=== PATIENT | female | born 1975 | race Caucasian/White ===

== ENCOUNTER 2017-02-27 09:33 | Emergency (ER) | payer OTHER ==
[~2017-02-27] VITALS: Ht 149.8 cm; Wt 90.7 kg
[~2017-02-27 09:33] MED LIST: NKHM; ZITHROMAX Z PA250 MG PO
[2017-02-27 10:07] LABS: BASO % 0.3 % (0.0-1.0); EOS # 0.1 10*3/uL (0.0-0.4); EOS % 0.6 % (1.0-4.0); HEMATOCRIT 43.6 % (37.0-47.0); HEMOGLOBIN 14.5 g/dl (12.0-16.0); LYMPH # 1.8 10*3/uL (1.3-4.4); LYMPH % 13.8 % (27.0-41.0); MEAN CELL VOLUME 89.3 fl (81.0-99.0); MEAN CORPUSCULAR HGB 29.7 pg (27.0-31.0); MEAN CORPUSCULAR HGB CONC 33.3 g/dl (33.0-37.0); MEAN PLATELET VOLUME 10.6 fl (9.6-12.3); MONO # 0.5 10*3/uL (0.1-1.0); NEUT # 10.4 10*3/uL (2.3-7.9); NEUT % 79.7 % (47.0-73.0); PLATELET COUNT AUTOMATED 392 10*3/uL (130-400); RED BLOOD COUNT 4.88 10*6/uL (4.10-5.10); RED CELL DISTRI WIDTH 13.5 % (0-14.5); WHITE BLOOD COUNT 13.1 10*3/uL (4.8-10.8)
[2017-02-27 10:23] LABS: ALBUMIN 3.5 gm/dl (3.1-4.5); ALKALINE PHOSPHATASE 147 U/L (45-117); BUN 18 mg/dl (7-24); CHLORIDE 104 mmol/L (98-107); CREATININE 1.07 mg/dL (0.55-1.02); POTASSIUM 3.7 mmol/L (3.5-5.1); SGOT/AST 26 IU/L (3-35); SGPT/ALT 40 U/L (12-78); SODIUM 139 mmol/L (136-145); TOTAL PROTEIN 8.2 gm/dL (6.4-8.2)
[2017-02-27 10:25] LABS: TROPONIN I < 0.015 ng/ml (<0.045)
[2017-02-27 11:46] LABS: BILIRUBIN NEGATIVE (NEGATIVE); BLOOD TRACE-INTACT (NEGATIVE); CLARITY SL CLOUDY (CLEAR); COLOR YELLOW (YELLOW); GLUCOSE NEGATIVE (NEGATIVE); KETONE NEGATIVE (NEGATIVE); LEUKO ESTERASE NEGATIVE (NEGATIVE); NITRITE NEGATIVE (NEGATIVE); PH 5.5 (5.0-9.0); SPECIFIC GRAVITY >= 1.030 (1.005-1.030); UROBILINOGEN 0.2 E.U./dl (0.2-1.0)
[2017-02-27 11:51] LABS: URINE AMPHETAMINES < 1000 (1000ng/ml); URINE BARBITURATES < 200 (200ng/ml); URINE BENZODIAZEPINES < 200 (200ng/ml); URINE CANNABINOIDS (THC) < 50 (50ng/ml); URINE COCAINE < 300 (300ng/ml); URINE METHADONE < 300 (300ng/ml); URINE OPIATES < 300 (300ng/ml)
[2017-02-27 11:56] LABS: URINE PHENCYCLIDINE < 25 (25ng/ml)
[2017-02-27 12:04] LABS: BACTERIA TRACE; WBC 0-2 wbc/hpf (0-5)
== END 2017-02-27 15:17 | disposition short-term general hospital (02) ==
LOC: ED 09:33
PROVIDERS: Nurse Practitioner Family
DX: R56.9 Unspecified convulsions (principal)

== ENCOUNTER → 2017-05-26 | Outpatient (CLI) | payer OTHER | END | disposition home or self-care (01) | LOC: RAD 14:59 | DX: M48.56XA Collapsed vertebra, not elsewhere classified, lumbar region, initial encounter for fracture (principal) ==

== ENCOUNTER → 2018-03-09 | Outpatient (CLI) | payer OTHER | END | disposition home or self-care (01) | LOC: RAD 11:48 | DX: M54.5 Low back pain (principal); M54.6 Pain in thoracic spine ==

== ENCOUNTER → 2018-05-05 | Outpatient (CLI) | payer OTHER | END | disposition home or self-care (01) | LOC: LAB 14:06 | DX: R56.9 Unspecified convulsions (principal) ==

== ENCOUNTER → 2018-09-24 | Outpatient (CLI) | payer OTHER ==
[~2018-09-24] MED LIST changes: +AMOXICILLIN500 M2 PO; +DOXYCYCLINE100 M3 PO; +IBUPROFEN600 MG PO; +KEPPRA500 MG PO; +NORCO 5-325 TA1 EACH PO; +PRILOSEC20 M1 PO; +SINGULAIR10 M1 PO; +TRAMADOL HCL50 MG PO; +VITAMIN D5000 UNI1 PO; +XYZAL5 M1 PO; +ZOLOFT100 MG PO
[2018-09-24 15:02] LABS: BASO % 0.5 % (0.0-1.0); BILIRUBIN NEGATIVE (NEGATIVE); BLOOD NEGATIVE (NEGATIVE); CLARITY CLEAR (CLEAR); COLOR STRAW (YELLOW); EOS # 0.1 10*3/uL (0.0-0.4); EOS % 2.1 % (1.0-4.0); GLUCOSE NEGATIVE (NEGATIVE); HEMATOCRIT 41.7 % (37.0-47.0); KETONE NEGATIVE (NEGATIVE); LEUKO ESTERASE 1+ (NEGATIVE); LYMPH # 1.2 10*3/uL (1.3-4.4); LYMPH % 19.8 % (27.0-41.0); MEAN CELL VOLUME 95.6 fl (81.0-99.0); MEAN CORPUSCULAR HGB 32.1 pg (27.0-31.0); MEAN CORPUSCULAR HGB CONC 33.6 g/dl (33.0-37.0); MEAN PLATELET VOLUME 11.6 fl (9.6-12.3); MONO # 0.4 10*3/uL (0.1-1.0); MONO % 7.2 % (3.0-9.0); NEUT # 4.3 10*3/uL (2.3-7.9); NEUT % 70.1 % (47.0-73.0); NITRITE NEGATIVE (NEGATIVE); PH 5.5 (5.0-9.0); PLATELET COUNT AUTOMATED 279 10*3/uL (130-400); RED BLOOD COUNT 4.36 10*6/uL (4.10-5.10); RED CELL DISTRI WIDTH 12.9 % (0-14.5); SPECIFIC GRAVITY >= 1.030 (1.005-1.030); UROBILINOGEN 0.2 E.U./dl (0.2-1.0); WHITE BLOOD COUNT 6.1 10*3/uL (4.8-10.8)
[2018-09-24 15:08] LABS: BACTERIA 4+; WBC 16-20 wbc/hpf (0-5)
[2018-09-24 15:09] LABS: RBC 0-2 rbc/hpf (0-2)
[2018-09-24 15:28] LABS: BUN 14 mg/dl (7-24); CHLORIDE 107 mmol/L (98-107); CREATININE 0.73 mg/dL (0.55-1.02); POTASSIUM 4.3 mmol/L (3.5-5.1); SODIUM 141 mmol/L (136-145)
[2018-09-24 15:31] LABS: ACT PARTIAL THROMBO TIME 25.9 SECONDS (20.0-32.1)
== END | disposition home or self-care (01) ==
LOC: LAB 13:18
PROVIDERS: Surgery
DX: Z01.818 Encounter for other preprocedural examination (principal); K80.80 Other cholelithiasis without obstruction

== ENCOUNTER → 2018-09-30 | Day surgery (SDC) | payer OTHER ==
[~2018-09-30] VITALS: Ht 149.8 cm; Wt 76.7 kg
--- NOTE | ~2018-09-30 | O ---
[place], [place] OPERATIVE NOTE NAME: TALAT CADENA [facility] #: [id number] UNIT #: [id number] ROOM: DOCTOR: ARCHIE RING MD BIRTHDATE: [birth year] DOS: 09/30/2018 PREOPERATIVE DIAGNOSES: Chronic calculous cholecystitis and history of gallstone associated pancreatitis, status post ERCP with stent placement. POSTOPERATIVE DIAGNOSES: Chronic calculous cholecystitis and history of gallstone associated pancreatitis, status post ERCP with stent placement. PROCEDURE: Laparoscopic cholecystectomy. SURGEON: Archie Ring MD SHIFT BOSS: MINNA. ANESTHESIA: General with endotracheal intubation. INDICATIONS: This is a 42-year-old lady with a history of previous chronic calculous cholecystitis, status post stent placement for gallstone associated pancreatitis and common bile duct stones who is here for the above-mentioned procedure. The procedure and its complications were explained to the patient in detail preoperatively. Complications that were discussed included but were not limited to bleeding, infection, hematoma/seroma/abscess formation, biloma formation, prolonged postoperative pain, damage to underlying vital structures, inadvertent injury to common bile duct and incisional hernia formation. She agreed to proceed. DESCRIPTION OF PROCEDURE: After identifying the patient, the patient was brought to the operating suite and laid in the supine position. After induction of general anesthesia, timeout procedure was called. The parts were then painted and draped in the usual sterile fashion. An incision in a transverse fashion was made in the subumbilical region. The skin and the subcutaneous tissue were incised in the line of the incision. The fascia was incised vertically and 2 stay sutures were taken. The peritoneum was opened and a 12 mm Licha port was introduced into the peritoneal cavity. A pneumoperitoneum was created. Under direct vision, an epigastric incision of 12 mm and two 5 mm incision were made in the right upper quadrant and appropriate size ports were introduced. The gallbladder had some chronic adhesions between the liver bed and the gallbladder, which were taken down with the help of sharp dissection. The gallbladder was then retracted superiorly and laterally. The cystic duct and the cystic artery were carefully dissected until the critical view of safety was obtained and the triangle of Calot was clearly identified. Thereafter, the cystic duct and the cystic artery were each clipped 3 times and cut between the first and the second clip. The gallbladder was then removed from the bed of the gallbladder with the help of electrocautery. It was placed in an EndoCatch bag and removed from the peritoneal cavity and sent for histopathological diagnosis. Hemostasis was achieved and confirmed in the liver bed with the help of electrocautery. Thereafter, the right upper quadrant and epigastric ports were removed and there was no bleeding seen. The umbilical port was also removed. The 2 stay sutures were tied together and an additional 0 Vicryl suture was taken to close the fascia. Local anesthesia was infiltrated in the skin edges [place], [place] O[facility]AT[id number] UN[facility] #: [id number] ROOM: DOCTOR: ARCHIE RING MD BIRTHDATE: [birth year] of all the 4 incisions and the incisions were then approximated with the help of 4-0 Vicryl in a subcuticular running fashion. Dressings were placed on all the 4 incisions. The patient tolerated the procedure well. She was extubated uneventfully and brought back to the recovery room in stable fashion. There were no complications. Dr. Archie Ring, the attending surgeon, was present throughout the operating case. Archie Ring MD CM:OPRECORD:OPERATIVE NOTE [id number] ARCHIE RING MD 09/30/18 1016 interface
[2018-09-30 07:30] VITALS: BP 125/69
[2018-09-30 09:58] VITALS: BP 115/54
[2018-09-30 10:13] VITALS: BP 115/55
[2018-09-30 10:28] VITALS: BP 109/51
[2018-09-30 10:43] VITALS: BP 119/58
[2018-09-30 10:58] VITALS: BP 119/61
== END | disposition home or self-care (01) ==
LOC: SDC 09-24 13:15
DX: K80.10 Calculus of gallbladder with chronic cholecystitis without obstruction (principal); J45.909 Unspecified asthma, uncomplicated; F41.9 Anxiety disorder, unspecified; F32.9 Major depressive disorder, single episode, unspecified; K21.9 Gastro-esophageal reflux disease without esophagitis; M41.9 Scoliosis, unspecified; Z88.1 Allergy status to other antibiotic agents; Z88.8 Allergy status to other drugs, medicaments and biological substances; Z79.899 Other long term (current) drug therapy; Z98.890 Other specified postprocedural states; Z87.01 Personal history of pneumonia (recurrent); Z83.3 Family history of diabetes mellitus

== ENCOUNTER 2018-11-06 13:21 | Emergency (ER) | payer OTHER ==
[~2018-11-06] VITALS: Ht 149.8 cm; Wt 74.8 kg
[~2018-11-06 13:21] MED LIST changes: -AMOXICILLIN500 M2 PO; -IBUPROFEN600 MG PO; -VITAMIN D5000 UNI1 PO
[2018-11-06] MEDS ORDERED: IBUPROFEN600 MG PO (13:33)
[2018-11-06] MEDS ORDERED: AMOXICILLIN500 M2 PO (13:33)
== END 2018-11-06 13:55 | disposition home or self-care (01) ==
LOC: ED 13:21
DX: K08.89 Other specified disorders of teeth and supporting structures (principal); Z88.1 Allergy status to other antibiotic agents; Z79.899 Other long term (current) drug therapy

== ENCOUNTER 2018-11-17 22:36 | Inpatient (IN) | payer OTHER ==
[~2018-11-17] VITALS: Ht 149.9 cm; Wt 73.6 kg
--- NOTE | ~2018-11-17 | PR ---
[place], [place] PROGRESS NOTE NAME: TALAT CADENA UNIT #: [id number] ROOM: 427 DOCTOR: GREG POLK MD BIRTHDATE: [birth year] DOS: 11/20/2018 REASON FOR VISIT: Sinus bradycardia. HISTORY OF PRESENT ILLNESS: The patient is sitting on her bed comfortably. Denies any dizziness or palpitations. No chest pain or shortness of breath. No PND. Her nausea and epigastric pain is somewhat better. No fever and chills, no cough, no hemoptysis. The 8 systems negative except as mentioned above. PHYSICAL EXAMINATION: VITAL SIGNS: Blood pressure 121/55, pulse 44, respiratory rate 16, weight 73 kilos. RHYTHM STRIPS: The patient is in sinus rhythm with sinus bradycardia, no heart blocks. GENERAL: Alert, comfortable, in no acute distress. NECK: Supple, no distended neck veins. No carotid bruits. CHEST: Symmetrical, nontender. LUNGS: Clear to auscultation bilaterally. HEART: Regular rhythm, no S3, no palpable thrills. ABDOMEN: Obese, nontender. Bowel sounds normal. EXTREMITIES: Showed trace edema. Distal pulses palpable. SKIN: Warm and dry. No cyanosis, no clubbing. RECTAL: Deferred. GENITOURINARY: Deferred. NEUROLOGIC: The patient is alert with no focal neurologic deficit. LABORATORY DATA: Labs and medications reviewed. Hemoglobin 10.8, potassium 3.6. TSH normal, T4 normal. 2D echo unremarkable. IMPRESSION: 1. Sinus bradycardia, asymptomatic, normal TSH and T4 levels. The patient has a known bradycardia in the past, likely secondary to her abdominal symptoms and nausea. 2. Elevated bilirubin with epigastric pain with status post ERCP. 3. Mild anemia. RECOMMENDATIONS: No further cardiac testing. Echo findings are discussed and thyroid function tests are normal and the patient is asymptomatic. Cardiology followup as needed. If the patient develops symptomatic bradycardia, then she will need a permanent pacemaker. The above recommended treatment was discussed with the patient and her family member who is at bedside and all questions were answered. [place], [place] PROGRESS NOTE NAME: TALAT CADENA UNIT #: [id number] ROOM: 427 DOCTOR: GREG POLK MD BIRTHDATE: [birth year] GREG POLK MD CM:PNSHILPA [id number] GREG POLK MD 11/20/18 2148 interface
--- NOTE | ~2018-11-17 | O ---
[place], [place] OPERATIVE NOTE NAME: TALAT CADENA UNIT #: [id number] ROOM: 427 DOCTOR: REINALDO BARBOUR MD BIRTHDATE: [birth year] DOS: 11/19/2018 GASTROENDOSCOPIC REPORT INDICATIONS: The patient has presented with abnormal liver function test. The patient has been previously at ERCP and stent. Once the stent was removed after maturation, the patient developed abnormal LFTs, signifying obstruction. PROCEDURE: Today's procedure part of investigation is ERCP plus balloon sweep of common duct plus common duct stenting of size 10 x 7. PREMEDICATION: Propofol by intubation and Anesthesia. SCOPE: Olympus side-viewing duodenoscope. REPORT: After putting the patient in left lateral position, application of lubricant to the scope, the scope was introduced. Thereafter, under direct visualization, advanced through the length of esophagus into gastric pouch into duodenal bulb. Selective cannulization of common duct was undertaken. The cystic duct has very low position and therefore why majority of time is spent in cystic duct; however, appropriate measures were taken and wire was placed in the right hepatic radicle. A balloon sweep at size 12 was undertaken. A stent size 10 x 12 was over the guidewire was deployed. Photographic series before and after was obtained. Emptied duct immediately was identified. The patient extubated, tolerated the procedure well. 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 PLAN AND DISCUSSION: LFTs tomorrow next morning. Thank you very much indeed. If there is no improvement in liver function tests, we are going to do a hepatitis panel as well as considering other contribution from chemicals I.e. acetaminophen intake of 2 Extra Strength acetaminophen daily in addition to her anti-seizure medication. [place], [place] OPERATIVE NOTE NAME: TALAT CADENA UNIT #: [id number] ROOM: 427 DOCTOR: REINALDO BARBOUR MD BIRTHDATE: [birth year] REINALDO BARBOUR MD CM:OPRECORD:OPERATIVE NOTE [id number] REINALDO BARBOUR MD 11/25/18 1044 interface
--- NOTE | ~2018-11-17 | EKG ---
[place], [place] ELECTROCARDIOGRAM REPORT NAME: TALAT CADENA UNIT #: [id number] ROOM: 403 DOCTOR: HAYDEE DRAFT REPORT BIRTHDATE: [birth year] [facility] Test Date: 2018-11-19 Test Time: 11:41:48 Pat Name: TALAT CADENA Department: Room: 403 2 Gender: F Costing Analyst: Mariluz Li : 1975 Requested By: MARIANO DELAROSA Order Number: [id number] Reading MD: Mariano Delarosa MD Measurements Intervals [place] Rate: 42 P: -2 CO: 131 QRS: 48 QRSD: 95 T: -1 QT: 519 QTc: 434 Interpretive Statements Sinus bradycardia Low voltage, precordial leads No previous ECG available for comparison Electronically Signed On 11-19-2018 13:03:45 PDT by Mariano Delarosa MD CM:EKGRPT:ELECTROCARDIOGRAM REPORT 1141 [id number] MARIANO DELAROSA MD EPIPHANY DRAFT REPORT MARIANO DELAROSA MD
[~2018-11-17 22:36] MED LIST changes: -VITAMIN D5000 UNI1 PO
[2018-11-17 22:41] VITALS: BP 117/57
[2018-11-18 00:29] LABS: BASO % 0.2 % (0.0-1.0); EOS % 0.2 % (1.0-4.0); HEMATOCRIT 40.3 % (37.0-47.0); HEMOGLOBIN 13.3 g/dl (12.0-16.0); LYMPH # 0.7 10*3/uL (1.3-4.4); LYMPH % 7.5 % (27.0-41.0); MEAN CELL VOLUME 96.2 fl (81.0-99.0); MEAN CORPUSCULAR HGB 31.7 pg (27.0-31.0); MEAN PLATELET VOLUME 11.5 fl (9.6-12.3); MONO # 0.6 10*3/uL (0.1-1.0); MONO % 6.1 % (3.0-9.0); NEUT # 7.7 10*3/uL (2.3-7.9); NEUT % 85.3 % (47.0-73.0); PLATELET COUNT AUTOMATED 234 10*3/uL (130-400); RED BLOOD COUNT 4.19 10*6/uL (4.10-5.10); RED CELL DISTRI WIDTH 13.2 % (0-14.5)
[2018-11-18 00:41] LABS: ALBUMIN 3.6 gm/dl (3.1-4.5); ALKALINE PHOSPHATASE 652 U/L (45-117); BUN 12 mg/dl (7-24); CHLORIDE 108 mmol/L (98-107); CREATININE 0.82 mg/dL (0.55-1.02); LIPASE 96 U/L (73-393); POTASSIUM 4.1 mmol/L (3.5-5.1); SGOT/AST 792 IU/L (3-35); SGPT/ALT 554 U/L (12-78); SODIUM 138 mmol/L (136-145); TOTAL PROTEIN 7.7 gm/dL (6.4-8.2)
[2018-11-18 01:50] LABS: BILIRUBIN 1+ (NEGATIVE); BLOOD NEGATIVE (NEGATIVE); CLARITY CLEAR (CLEAR); COLOR YELLOW (YELLOW); GLUCOSE NEGATIVE (NEGATIVE); KETONE NEGATIVE (NEGATIVE); LEUKO ESTERASE TRACE (NEGATIVE); NITRITE NEGATIVE (NEGATIVE); SPECIFIC GRAVITY 1.015 (1.005-1.030)
[2018-11-18 02:03] LABS: RBC 0-2 rbc/hpf (0-2)
[2018-11-18 02:04] LABS: BACTERIA 1+; EPITHELIAL CELLS 0-2
[2018-11-18 02:40] VITALS: BP 112/62
[2018-11-18 02:53] VITALS: BP 107/58
--- NOTE | 2018-11-18 02:53 | NUR ---
A 42, admitted to , under the services of MARLA Cool DO with a diagnosis of ELEVATED BILIRUBIN,EPIGASTRIC PAIN,NAUSEA AND VOMITING. Chief complaint is ABDOMINAL PAIN. Patient arrived via stretcher from ER. Monitor applied. Initial assessment completed. Vital signs taken and recorded. MARLA COOL DO notified of admission to the unit. Orders received. See assessment for past medical history, medications and allergies. Patient and/or family oriented to unit. [facility]. Clothing/patient valuable form completed. FRAN ALEXANDRE
[2018-11-18 03:22] LABS: BASO % 0.2 % (0.0-1.0); EOS % 0.1 % (1.0-4.0); HEMATOCRIT 37.7 % (37.0-47.0); HEMOGLOBIN 12.6 g/dl (12.0-16.0); LYMPH # 0.7 10*3/uL (1.3-4.4); LYMPH % 7.9 % (27.0-41.0); MEAN CELL VOLUME 95.2 fl (81.0-99.0); MEAN CORPUSCULAR HGB 31.8 pg (27.0-31.0); MEAN CORPUSCULAR HGB CONC 33.4 g/dl (33.0-37.0); MONO # 0.4 10*3/uL (0.1-1.0); MONO % 4.6 % (3.0-9.0); NEUT # 7.3 10*3/uL (2.3-7.9); PLATELET COUNT AUTOMATED 238 10*3/uL (130-400); RED BLOOD COUNT 3.96 10*6/uL (4.10-5.10); RED CELL DISTRI WIDTH 13.4 % (0-14.5); WHITE BLOOD COUNT 8.3 10*3/uL (4.8-10.8)
--- NOTE | 2018-11-18 03:33 | NUR ---
DR DUNN AWARE THAT PATIENT HOME MEDICATIONS ARE UP TO DATE.
[2018-11-18 03:34] LABS: ACT PARTIAL THROMBO TIME 24.7 SECONDS (20.0-32.1)
[2018-11-18 03:52] LABS: ALBUMIN 3.3 gm/dl (3.1-4.5); ALKALINE PHOSPHATASE 623 U/L (45-117); BUN 10 mg/dl (7-24); CHLORIDE 110 mmol/L (98-107); CHOLESTEROL 164 mg/dL (<200); CREATININE 0.71 mg/dL (0.55-1.02); HDL CHOLESTEROL 52 mg/dl (40-60); LDL CHOLESTEROL 97 mg/dL (9-159); PHOSPHOROUS 2.9 mg/dL (2.5-4.9); SGOT/AST 900 IU/L (3-35); SGPT/ALT 678 U/L (12-78); SODIUM 140 mmol/L (136-145); TOTAL PROTEIN 7.3 gm/dL (6.4-8.2); TRIGLYCERIDES 75 mg/dl (<150); VLDL CHOLESTEROL 15 mg/dL (6-40)
--- NOTE | 2018-11-18 07:35 | NUR ---
CALLED DR BARBOUR WITH LFT LABS ORDERED. NEW ORDERS RECEIVED.
[2018-11-18 08:00] VITALS: BP 104/60
--- NOTE | 2018-11-18 09:00 | NUR ---
[employer] Battalion Chief in to talk to patient. Patient states lives at home with . There are few steps in the home. Physician: matty Pharmacy: [facility] Home health services: none Patient's level of ADLs: INDEPENDENT Patient has working utilities: all working DME: none Follow-up physician's appointment after d/c: will be made by hospitalist nurse director upon discharge Does patient want to access PORTAL?: no Discharge plan discussed with patient, patient lives at home with , she is independent in adls and ambulation, she states she will return home whena able and denies any home needs. KELLIE MCFADDEN
[2018-11-18 12:00] VITALS: BP 107/67
[2018-11-18 16:00] VITALS: BP 99/57
[2018-11-18 20:00] VITALS: BP 143/96
[2018-11-19] VITALS (10 sets, daily range): BP systolic 102–122; BP diastolic 50–76
[2018-11-19 06:51] LABS: ALBUMIN 2.8 gm/dl (3.1-4.5); ALKALINE PHOSPHATASE 611 U/L (45-117); BUN 5 mg/dl (7-24); CHLORIDE 115 mmol/L (98-107); CREATININE 0.55 mg/dL (0.55-1.02); SGOT/AST 526 IU/L (3-35); SGPT/ALT 770 U/L (12-78); SODIUM 143 mmol/L (136-145); TOTAL PROTEIN 6.1 gm/dL (6.4-8.2)
--- NOTE | 2018-11-19 07:05 | NUR ---
ARRIVED ON SHIFT, PATIENT RESTING WITH EYES CLOSED, DID NOT AWAKEN FOR BEDSIDE REPORT, WHITE BOARD UPDATED.
--- NOTE | 2018-11-19 08:55 | NUR ---
Shift chart check completed.
--- NOTE | 2018-11-19 09:00 | NUR ---
case management visits with patient, she states she will be returning home when able and denies any home needs
--- NOTE | 2018-11-19 11:09 | NUR ---
CALL PLACED TO HOSPITALISTS LINE SPOKE WITH DR. ASHFORD, ADVISED OF PATIENTS HEART RATE CONSISTANTLY IN 30'S-40'S
--- NOTE | 2018-11-19 11:19 | NUR ---
REFERAL RECEIVED FOR CARDIO CONSULT, DR. ANDRADE WAS WALKING BY I ADVISED HIM OF CONSULTATION, WELL CALLING TO HIS OFFICE, HER ORDERED A 1 TIME DOSE OF ATROPINE 0.5MG
--- NOTE | 2018-11-19 14:11 | NUR ---
SPOKE WITH DR ANDRADE, STATES PT OK FOR ERCP, GIVE 0.5 MG OF ATROPINE NEEDED FOR HR<40.
--- NOTE | 2018-11-19 20:47 | NUR ---
ZAOFRAN GIVEN FOR C/O NAUSEA FOLLOWING "ANESTHESIA". CALL LIGHT IN REACH. AT BEDSIDE. WILL MONITOR.
--- NOTE | 2018-11-19 20:48 | NUR ---
ANXIOUS AT TIME OF SHIFT REPORT. PAIN TO ABD NOTED FOLLOWING ERCP TODAY AND RECENT STENT REMOVAL. AT BEDSIDE. PT IN TEARS AND STATING ITS "DUE TO ANXIETY." REQUESTING SPOUSE TO STAY. EXPLAINED POLICIES OF HOSPITAL REGARDING VISITORS. PTs ANXIETY INCREASING. CALL LIGHT IN REACH. AT BEDSIDE CALMING PT DOWN.
--- NOTE | 2018-11-19 21:36 | NUR ---
PER PT, ZOFRAN WAS EFFECTIVE. NAUSEA IS BETTER. IVF GOING WITH EASE. CALL LIGHT IN REACH. AT BEDSIDE. NO FURTHER COMPLAINTS VOICED.
[2018-11-20] VITALS: BP 92/40
--- NOTE | 2018-11-20 07:45 | NUR ---
NOTIFIED REGARDING POSITIVE URINE CULTURE.
[2018-11-20 08:00] VITALS: BP 102/51
[2018-11-20 08:52] LABS: BASO % 0.4 % (0.0-1.0); EOS % 0.4 % (1.0-4.0); HEMATOCRIT 34.2 % (37.0-47.0); HEMOGLOBIN 10.8 g/dl (12.0-16.0); LYMPH # 1.3 10*3/uL (1.3-4.4); LYMPH % 17.3 % (27.0-41.0); MEAN CELL VOLUME 98.6 fl (81.0-99.0); MEAN CORPUSCULAR HGB 31.1 pg (27.0-31.0); MEAN CORPUSCULAR HGB CONC 31.6 g/dl (33.0-37.0); MEAN PLATELET VOLUME 11.2 fl (9.6-12.3); MONO # 0.5 10*3/uL (0.1-1.0); MONO % 6.7 % (3.0-9.0); NEUT # 5.7 10*3/uL (2.3-7.9); NEUT % 74.9 % (47.0-73.0); PLATELET COUNT AUTOMATED 221 10*3/uL (130-400); RED BLOOD COUNT 3.47 10*6/uL (4.10-5.10); RED CELL DISTRI WIDTH 13.8 % (0-14.5); WHITE BLOOD COUNT 7.6 10*3/uL (4.8-10.8)
[2018-11-20 09:11] LABS: ALBUMIN 2.6 gm/dl (3.1-4.5); BUN 6 mg/dl (7-24); CHLORIDE 114 mmol/L (98-107); CREATININE 0.57 mg/dL (0.55-1.02); POTASSIUM 3.6 mmol/L (3.5-5.1); SGOT/AST 171 IU/L (3-35); SGPT/ALT 466 U/L (12-78); SODIUM 142 mmol/L (136-145)
[2018-11-20 09:13] LABS: ALKALINE PHOSPHATASE 540 U/L (45-117)
--- NOTE | 2018-11-20 10:14 | NUR ---
PATIENT REFUSING PRN ATROPINE AT THIS TIME. HR FLUCTUATING BETWEEN 38-39. PT ASYMPTOMATIC. WILL CONTINUE TO MONITOR.
--- NOTE | 2018-11-20 11:08 | NUR ---
NOTIFIED REGARDING PATIENT C/O THROAT PAIN. NEW ORDERS TO BE ENTERED.
[2018-11-20 11:21] VITALS: BP 121/55
[2018-11-20 15:17] VITALS: BP 111/52
--- NOTE | 2018-11-20 17:36 | NUR ---
PRN THROAT SPRAY GIVEN AT THIS TIME PER PT REQUEST. WILL MONITOR EFFECTIVENESS.
--- NOTE | 2018-11-20 20:00 | NUR ---
TOOK OVER CARE OF PT AT THIS TIME. PT LYING IN BED, EYES OPEN. ALERT ORIENTED AND PLEASANT WITH STAFF. PT ASSESSMENT COMPLETE AT THIS TIME. PT DENIES N/V, DENIES CP OR SOB. PT STATES THAT SHE DOES NOT NEED ANYTHING AT THIS TIME. IV FLUIDS INFUSING. HOB ELEVATED, PT VISITNG WITH FAMILY. CALL LIGHT IN REACH.
[2018-11-21] VITALS: BP 124/59
--- NOTE | 2018-11-21 04:23 | NUR ---
PT SLEEPING IN BED AT THIS TIME. RESPIRATIONS EASY AND UNLABORED ON ROOM AIR. NO S/S OF DISTRESS NOTED. CALL LIGHT IN REACH.
--- NOTE | 2018-11-21 04:24 | NUR ---
24 HR chart check completed.
[2018-11-21 06:19] LABS: BASO % 0.4 % (0.0-1.0); EOS # 0.1 10*3/uL (0.0-0.4); EOS % 1.7 % (1.0-4.0); HEMATOCRIT 34.4 % (37.0-47.0); HEMOGLOBIN 11.4 g/dl (12.0-16.0); LYMPH # 1.9 10*3/uL (1.3-4.4); LYMPH % 35.1 % (27.0-41.0); MEAN CORPUSCULAR HGB 31.3 pg (27.0-31.0); MEAN CORPUSCULAR HGB CONC 33.1 g/dl (33.0-37.0); MEAN PLATELET VOLUME 11.7 fl (9.6-12.3); MONO # 0.5 10*3/uL (0.1-1.0); MONO % 8.4 % (3.0-9.0); NEUT # 2.9 10*3/uL (2.3-7.9); NEUT % 54.2 % (47.0-73.0); PLATELET COUNT AUTOMATED 225 10*3/uL (130-400); RED BLOOD COUNT 3.64 10*6/uL (4.10-5.10); RED CELL DISTRI WIDTH 13.4 % (0-14.5); WHITE BLOOD COUNT 5.4 10*3/uL (4.8-10.8)
[2018-11-21 06:29] LABS: ALBUMIN 2.7 gm/dl (3.1-4.5); ALKALINE PHOSPHATASE 545 U/L (45-117); BUN 3 mg/dl (7-24); CHLORIDE 106 mmol/L (98-107); CREATININE 0.61 mg/dL (0.55-1.02); POTASSIUM 3.2 mmol/L (3.5-5.1); SGOT/AST 83 IU/L (3-35); SGPT/ALT 320 U/L (12-78); SODIUM 141 mmol/L (136-145); TOTAL PROTEIN 6.4 gm/dL (6.4-8.2)
[2018-11-21 06:59] LABS: MEAN CELL VOLUME 94.5 fl (81.0-99.0)
[2018-11-21 08:00] VITALS: BP 125/63
--- NOTE | 2018-11-21 08:00 | NUR ---
PATIENT RESTING QUIETLY IN BED. PT DENIES ANY ABD PAIN AND/OR NAUSEA. WILL CONTINUE TO MONITOR. CALL LIGHT WITHIN REACH. VSS
--- NOTE | 2018-11-21 10:00 | NUR ---
UPDATED ON AM LABS. NEW ORDERS RECEIVED.
[2018-11-21 12:00] VITALS: BP 110/47
[2018-11-21] MEDS ORDERED: VITAMIN D5000 UNI1 PO (12:53)
--- NOTE | 2018-11-21 13:24 | NUR ---
Discharge instructions reviewed with patient/family. Patient receptive and verbalizes understanding. Follow-up care arranged. Written instructions given to patient/family. MAHI RIVAS.
== END 2018-11-21 13:24 | disposition home or self-care (01) | DRG 948 ==
LOC: ED 22:36 → 4E 11-18 01:11 → EDHOLD 11-18 01:11 → 4E 11-18 02:02
PROVIDERS: Internal Medicine; Internal Medicine Gastroenterology; Physician Assistant; Student in an Organized Health Care Education/Training Program; ADMIT Internal Medicine
DX: G89.18 Other acute postprocedural pain (principal); R17 Unspecified jaundice; E87.2 Acidosis; M86.9 Osteomyelitis, unspecified; R10.13 Epigastric pain; E87.8 Other disorders of electrolyte and fluid balance, not elsewhere classified; R74.0 Nonspecific elevation of levels of transaminase and lactic acid dehydrogenase [LDH]; E55.9 Vitamin D deficiency, unspecified; G40.909 Epilepsy, unspecified, not intractable, without status epilepticus; E66.9 Obesity, unspecified; K57.90 Diverticulosis of intestine, part unspecified, without perforation or abscess without bleeding; D72.810 Lymphocytopenia; R73.9 Hyperglycemia, unspecified; R00.1 Bradycardia, unspecified; D64.9 Anemia, unspecified; Z68.39 Body mass index [BMI] 39.0-39.9, adult; Z88.8 Allergy status to other drugs, medicaments and biological substances; Z79.899 Other long term (current) drug therapy; Z90.49 Acquired absence of other specified parts of digestive tract; Z83.3 Family history of diabetes mellitus; Z80.59 Family history of malignant neoplasm of other urinary tract organ; Z98.890 Other specified postprocedural states; Z68.32 Body mass index [BMI] 32.0-32.9, adult

== ENCOUNTER → 2018-11-17 | Day surgery (SDC) | payer OTHER ==
[~2018-11-17] VITALS: Ht 149.8 cm; Wt 76.7 kg
[~2018-11-17] MED LIST changes: +AMOXICILLIN500 M2 PO; +IBUPROFEN600 MG PO; +VITAMIN D5000 UNI1 PO
--- NOTE | ~2018-11-17 | O ---
[place], [place] OPERATIVE NOTE NAME: TALAT CADENA UNIT #: [id number] ROOM: DOCTOR: REINALDO BARBOUR MD BIRTHDATE: [birth year] DOS: 11/17/2018 GASTROENDOSCOPIC REPORT INDICATIONS: The patient has presented with old history of status post ERCP, right upper quadrant pain, dyspepsia. The patient is status post previous biliary therapeutics, stent in place. ALLERGIES: Z-HARVEY. PAST SURGICAL HISTORY: Cholecystectomy and common duct stent. PROCEDURE: Today's procedure part of investigation is ERCP plus removal obstructed migrated common duct stent and dilation of papilla with balloon and sweeping of common duct with balloon. PREMEDICATION: Propofol. SCOPE: Olympus side-viewing duodenoscope. REPORT: After putting the patient in left lateral position and application of lubricant to the scope, the scope was introduced. Thereafter, under direct visualization, advanced through the length of esophagus into gastric pouch. Bile reflux gastritis noticed. Duodenum was entered migrated common duct stent and agitation of duodenum with severe duodenitis was noticed, photographed, snare was applied, stent of the common duct was pulled orally out. The patient was reintubated and Papilla of Vater was defined. Selective cannulization of common duct was undertaken. Guidewire was advanced to right hepatic radicles. Balloon size 12 was introduced into the common duct. Papilla of Vater was dilated first to size 12 and then common duct was sweep, sludge was removed. Air was suctioned out. The patient was extubated, tolerated the procedure well. IMPRESSION: ERCP, status post stent removal from common duct. Severe duodenitis noticed status post balloon dilation of papilla, status post balloon sweep of common duct. PLAN AND DISCUSSION: Omeprazole 20 mg 1 every day. FOLLOWUP: Routinely with you in office, p.r.n. visit with us in GI Clinic. [place], [place] OPERATIVE NOTE NAME: TALAT CADENA UNIT #: [id number] ROOM: DOCTOR: REINALDO BARBOUR MD BIRTHDATE: [birth year] REINALDO BARBOUR MD CM:OPRECORD:OPERATIVE NOTE [id number] REINALDO BARBOUR MD 11/24/18 0931 interface
--- NOTE | ~2018-11-17 | O ---
[place], [place] OPERATIVE NOTE NAME: TALAT CADENA UNIT #: [id number] ROOM: DOCTOR: REINALDO BARBOUR MD BIRTHDATE: [birth year] DOS: 11/19/2018 GASTROENDOSCOPIC REPORT INDICATIONS: The patient has presented with abnormal liver function test. The patient has been previously at ERCP and stent. Once the stent was removed after maturation, the patient developed abnormal LFTs, signifying obstruction. PROCEDURE: Today's procedure part of investigation is ERCP plus balloon sweep of common duct plus common duct stenting of size 10 x 7. PREMEDICATION: Propofol by intubation and Anesthesia. SCOPE: Olympus side-viewing duodenoscope. REPORT: After putting the patient in left lateral position, application of lubricant to the scope, the scope was introduced. Thereafter, under direct visualization, advanced through the length of esophagus into gastric pouch into duodenal bulb. Selective cannulization of common duct was undertaken. The cystic duct has very low position and therefore why majority of time is spent in cystic duct; however, appropriate measures were taken and wire was placed in the right hepatic radicle. A balloon sweep at size 12 was undertaken. A stent size 10 x 12 was over the guidewire was deployed. Photographic series before and after was obtained. Emptied duct immediately was identified. The patient extubated, tolerated the procedure well. 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 PLAN AND DISCUSSION: LFTs tomorrow next morning. Thank you very much indeed. If there is no improvement in liver function tests, we are going to do a hepatitis panel as well as considering other contribution from chemicals I.e. acetaminophen intake of 2 Extra Strength acetaminophen daily in addition to her anti-seizure medication. [place], [place] OPERATIVE NOTE NAME: TALAT CADENA UNIT #: [id number] ROOM: DOCTOR: REINALDO BARBOUR MD BIRTHDATE: [birth year] REINALDO BARBOUR MD CM:OPRECORD:OPERATIVE NOTE [phone] REINALDO BARBOUR MD 11/25/18 1044 MARY [email or web address].LLR
[2018-11-17 09:19] VITALS: BP 107/83
[2018-11-17 10:13] VITALS: BP 106/46
[2018-11-17 10:28] VITALS: BP 116/58
[2018-11-17 10:45] VITALS: BP 103/58
== END | disposition home or self-care (01) ==
LOC: SDC 11-10 11:00
DX: R10.9 Unspecified abdominal pain (principal); J45.909 Unspecified asthma, uncomplicated; F41.9 Anxiety disorder, unspecified; F32.9 Major depressive disorder, single episode, unspecified; Z79.899 Other long term (current) drug therapy; Z98.890 Other specified postprocedural states; Z88.8 Allergy status to other drugs, medicaments and biological substances

== ENCOUNTER → 2018-11-24 | Outpatient (CLI) | payer OTHER ==
[~2018-11-24] MED LIST changes: +VITAMIN D5000 UNI1 PO
[2018-11-24 14:32] LABS: ALBUMIN 3.3 gm/dl (3.1-4.5); ALKALINE PHOSPHATASE 450 U/L (45-117); BUN 13 mg/dl (7-24); CHLORIDE 109 mmol/L (98-107); IRON 46 ug/dL (50-170); POTASSIUM 3.4 mmol/L (3.5-5.1); SGOT/AST 23 IU/L (3-35); SGPT/ALT 125 U/L (12-78); SODIUM 141 mmol/L (136-145); TOTAL PROTEIN 7.3 gm/dL (6.4-8.2)
[2018-11-25 13:11] LABS: ANTI-SMOOTH MUSCLE ANTIBODY 6 Units (0-19)
== END | disposition home or self-care (01) ==
LOC: LAB 13:45
PROVIDERS: Internal Medicine
DX: R74.0 Nonspecific elevation of levels of transaminase and lactic acid dehydrogenase [LDH] (principal); R17 Unspecified jaundice

== ENCOUNTER 2019-05-12 16:15 | Emergency (ER) | payer OTHER ==
[~2019-05-12] VITALS: Ht 149.8 cm; Wt 76.2 kg
[2019-05-12] MEDS ORDERED: CEPHALEXIN500 M1 PO (18:28)
[2019-05-12] MEDS ORDERED: MEDROL DOSEPAK4 MG PO (18:28)
== END 2019-05-12 18:41 | disposition home or self-care (01) ==
LOC: ED 16:15
DX: J40 Bronchitis, not specified as acute or chronic (principal); E66.9 Obesity, unspecified; M86.9 Osteomyelitis, unspecified; G40.909 Epilepsy, unspecified, not intractable, without status epilepticus; Z88.1 Allergy status to other antibiotic agents; Z88.6 Allergy status to analgesic agent; Z79.899 Other long term (current) drug therapy; Z68.39 Body mass index [BMI] 39.0-39.9, adult

== ENCOUNTER 2019-06-16 13:31 | Emergency (ER) | payer OTHER ==
[~2019-06-16] VITALS: Wt 79.4 kg
[~2019-06-16 13:31] MED LIST changes: +CEPHALEXIN500 M1 PO; +MEDROL DOSEPAK4 MG PO
[2019-06-16] MEDS ORDERED: CORTISPORIN SUS10 ML OT (14:29)
== END 2019-06-16 14:35 | disposition home or self-care (01) ==
LOC: ED 13:31
DX: H60.92 Unspecified otitis externa, left ear (principal); M86.9 Osteomyelitis, unspecified; E66.9 Obesity, unspecified; G40.909 Epilepsy, unspecified, not intractable, without status epilepticus; Z68.39 Body mass index [BMI] 39.0-39.9, adult; Z88.1 Allergy status to other antibiotic agents; Z88.6 Allergy status to analgesic agent; Z79.899 Other long term (current) drug therapy

== ENCOUNTER 2019-08-30 12:03 | Emergency (ER) | payer OTHER ==
[~2019-08-30 12:03] MED LIST changes: +CORTISPORIN SUS10 ML OT
[2019-08-30] MEDS ORDERED: AMOXICILLIN500 M2 PO (12:28)
[2019-08-30] MEDS ORDERED: ZYRTEC10 M3 PO (12:28)
== END 2019-08-30 13:14 | disposition home or self-care (01) ==
LOC: ED 12:03
DX: H66.91 Otitis media, unspecified, right ear (principal); K08.89 Other specified disorders of teeth and supporting structures; Z79.899 Other long term (current) drug therapy

== ENCOUNTER → 2019-12-05 | Outpatient (CLI) | payer OTHER ==
[~2019-12-05] MED LIST changes: +ZYRTEC10 M3 PO
[2019-12-05 10:50] LABS: BASO % 0.4 % (0.0-1.0); EOS # 0.2 10*3/uL (0.0-0.4); EOS % 2.2 % (1.0-4.0); HEMATOCRIT 40.4 % (37.0-47.0); LYMPH # 1.5 10*3/uL (1.3-4.4); LYMPH % 19.8 % (27.0-41.0); MEAN CELL VOLUME 93.5 fl (81.0-99.0); MEAN CORPUSCULAR HGB 30.3 pg (27.0-31.0); MEAN CORPUSCULAR HGB CONC 32.4 g/dl (33.0-37.0); MEAN PLATELET VOLUME 10.2 fl (9.6-12.3); MONO # 0.4 10*3/uL (0.1-1.0); MONO % 5.3 % (3.0-9.0); NEUT # 5.5 10*3/uL (2.3-7.9); NEUT % 71.9 % (47.0-73.0); PLATELET COUNT AUTOMATED 296 10*3/uL (130-400); RED BLOOD COUNT 4.32 10*6/uL (4.10-5.10); RED CELL DISTRI WIDTH 12.8 % (0-14.5); WHITE BLOOD COUNT 7.7 10*3/uL (4.8-10.8)
[2019-12-05 11:24] LABS: ALBUMIN 3.1 gm/dl (3.1-4.5); BUN 17 mg/dl (7-24); CHLORIDE 110 mmol/L (98-107); CREATININE 0.64 mg/dL (0.55-1.02); POTASSIUM 3.6 mmol/L (3.5-5.1); SGOT/AST 34 IU/L (3-35); SGPT/ALT 50 U/L (12-78); SODIUM 140 mmol/L (136-145); TOTAL PROTEIN 7.7 gm/dL (6.4-8.2)
[2019-12-05 11:25] LABS: ALKALINE PHOSPHATASE 193 U/L (45-117)
== END | disposition home or self-care (01) ==
LOC: LAB 09:43
PROVIDERS: Psychiatry & Neurology Neurology
DX: G40.209 Localization-related (focal) (partial) symptomatic epilepsy and epileptic syndromes with complex partial seizures, not intractable, without status epilepticus (principal); Z51.81 Encounter for therapeutic drug level monitoring

== ENCOUNTER 2020-01-06 22:58 | Emergency (ER) | payer OTHER ==
[~2020-01-06] VITALS: Wt 86.2 kg
[2020-01-06 23:46] LABS: BACTERIA 1+; BILIRUBIN Negative; BLOOD Negative (NEGATIVE); CLARITY Clear (CLEAR); COLOR Yellow (YELLOW); EPITHELIAL CELLS 31-40; GLUCOSE Negative; KETONE Negative; LEUKO ESTERASE 1+ (NEGATIVE); NITRITE Negative (NEGATIVE); PH 6.5 (4.5-8.0); SPECIFIC GRAVITY 1.025 (1.001-1.030); UROBILINOGEN 0.2 E.U./dl (0.0-1.0)
[2020-01-07] MEDS ORDERED: PREDNISONE20 M1 PO (00:27)
[2020-01-07] MEDS ORDERED: CYCLOBENZAPRINE10 MG PO (00:27)
== END 2020-01-07 01:50 | disposition home or self-care (01) ==
LOC: ED 22:58
PROVIDERS: Nurse Practitioner Family
DX: M62.838 Other muscle spasm (principal); M54.5 Low back pain; Z88.8 Allergy status to other drugs, medicaments and biological substances; Z79.899 Other long term (current) drug therapy; Z79.2 Long term (current) use of antibiotics

== ENCOUNTER → 2020-03-06 | Outpatient (CLI) | payer OTHER ==
[~2020-03-06] MED LIST changes: +CYCLOBENZAPRINE10 MG PO; +PREDNISONE20 M1 PO
== END | disposition home or self-care (01) ==
LOC: RAD 15:02
PROVIDERS: ATTEND Internal Medicine
DX: R05 Cough (principal); R06.2 Wheezing

== ENCOUNTER 2020-03-10 22:58 | Emergency (ER) | payer OTHER | END 2020-03-11 01:33 | disposition home or self-care (01) | LOC: ED 22:58 | DX: M25.571 Pain in right ankle and joints of right foot (principal); R56.9 Unspecified convulsions; Z88.8 Allergy status to other drugs, medicaments and biological substances; Z79.899 Other long term (current) drug therapy; Z79.2 Long term (current) use of antibiotics ==

== ENCOUNTER 2020-04-26 19:35 | Emergency (ER) | payer OTHER ==
[~2020-04-26] VITALS: Ht 149.8 cm; Wt 90.7 kg
== END 2020-04-26 22:42 | disposition home or self-care (01) ==
LOC: ED 19:35
DX: M54.16 Radiculopathy, lumbar region (principal); Z88.1 Allergy status to other antibiotic agents; Z88.6 Allergy status to analgesic agent; Z79.899 Other long term (current) drug therapy

== ENCOUNTER → 2020-05-19 | Outpatient (CLI) | payer OTHER ==
[2020-05-19 12:42] LABS: THYROID STIM HORMONE (HS) 2.94 uIU/ml (0.358-4.75)
== END | disposition home or self-care (01) ==
LOC: LAB 11:34
PROVIDERS: ATTEND Internal Medicine
DX: Z13.1 Encounter for screening for diabetes mellitus (principal); G40.209 Localization-related (focal) (partial) symptomatic epilepsy and epileptic syndromes with complex partial seizures, not intractable, without status epilepticus

== ENCOUNTER → 2020-11-10 | Outpatient (CLI) | payer OTHER ==
[~2020-11-10] MED LIST changes: +AUGMENTIN 875875 MG PO; +CIPRO500 MG PO; +HYDROCODONE-AC1 EAC1 PO; +KEPPRA1000 MG PO; +OXCARBAZEPINE300 M1 PO; +TRILEPTAL150 MG PO; +VITAMIN D31250 MCG PO
== END | disposition home or self-care (01) ==
LOC: LAB 11:03
PROVIDERS: ATTEND Psychiatry & Neurology Neurology
DX: Z51.81 Encounter for therapeutic drug level monitoring (principal); G40.219 Localization-related (focal) (partial) symptomatic epilepsy and epileptic syndromes with complex partial seizures, intractable, without status epilepticus

== ENCOUNTER 2020-11-16 20:56 | Emergency (ER) | payer OTHER ==
[~2020-11-16] VITALS: Ht 149.8 cm; Wt 88.5 kg
[~2020-11-16 20:56] MED LIST changes: -AUGMENTIN 875875 MG PO; -CIPRO500 MG PO; -HYDROCODONE-AC1 EAC1 PO; -KEPPRA1000 MG PO; -OXCARBAZEPINE300 M1 PO; -TRILEPTAL150 MG PO; -VITAMIN D31250 MCG PO
[2020-11-16] MEDS ORDERED: VITAMIN D31250 MCG PO (21:35)
[2020-11-16] MEDS ORDERED: OXCARBAZEPINE300 M1 PO (21:36)
[2020-11-16 21:48] LABS: BILIRUBIN 2+ (Negative); BLOOD Negative (Negative); CLARITY Cloudy (Clear); COLOR Dark Yellow (Yellow); GLUCOSE Negative (Negative); KETONE Trace (Negative); LEUKO ESTERASE 2+ (Negative); NITRITE Negative (Negative); SPECIFIC GRAVITY >= 1.030 (1.001-1.030)
[2020-11-16 21:57] LABS: BACTERIA 2+; MUCOUS 1+
[2020-11-17 00:34] LABS: BASO % 0.5 % (0.0-1.0); EOS # 0.1 10*3/uL (0.0-0.4); EOS % 0.9 % (1.0-4.0); HEMATOCRIT 39.5 % (37.0-47.0); LYMPH # 1.4 10*3/uL (1.3-4.4); LYMPH % 15.8 % (27.0-41.0); MEAN CELL VOLUME 91.2 fl (81.0-99.0); MEAN CORPUSCULAR HGB CONC 32.9 g/dl (33.0-37.0); MEAN PLATELET VOLUME 10.6 fl (9.6-12.3); MONO # 0.8 10*3/uL (0.1-1.0); NEUT # 6.3 10*3/uL (2.3-7.9); NEUT % 73.4 % (47.0-73.0); PLATELET COUNT AUTOMATED 314 10*3/uL (130-400); RED BLOOD COUNT 4.33 10*6/uL (4.10-5.10); RED CELL DISTRI WIDTH 14.5 % (0-14.5); WHITE BLOOD COUNT 8.5 10*3/uL (4.8-10.8)
[2020-11-17 00:53] LABS: ALBUMIN 3.1 gm/dl (3.1-4.5); ALKALINE PHOSPHATASE 837 U/L (45-117); BUN 17 mg/dl (7-24); CHLORIDE 106 mmol/L (98-107); CREATININE 0.68 mg/dL (0.55-1.02); POTASSIUM 3.6 mmol/L (3.5-5.1); SGOT/AST 177 IU/L (3-35); SGPT/ALT 227 U/L (12-78); SODIUM 136 mmol/L (136-145); TOTAL PROTEIN 7.8 gm/dL (6.4-8.2)
[2020-11-17] MEDS ORDERED: CIPRO500 MG PO ×3 (05:20→07:46)
[2020-11-18 10:06] LABS: HEP B CORE AB, IGM Negative (Negative); HEPATITIS B SURFACE AG Negative (Negative); HEPATITIS C VIRUS ANTIBODY <0.1 s/co (0.0-0.9)
== END 2020-11-17 08:05 | disposition home or self-care (01) ==
LOC: ED 20:56
PROVIDERS: Emergency Medicine
DX: N39.0 Urinary tract infection, site not specified (principal); Z20.822 Contact with and (suspected) exposure to COVID-19; R74.01 Elevation of levels of liver transaminase levels; K92.1 Melena; R42 Dizziness and giddiness; Z88.1 Allergy status to other antibiotic agents; Z88.8 Allergy status to other drugs, medicaments and biological substances; Z79.899 Other long term (current) drug therapy; Z90.49 Acquired absence of other specified parts of digestive tract; Z98.890 Other specified postprocedural states

== ENCOUNTER → 2020-11-19 | Outpatient (CLI) | payer OTHER ==
[~2020-11-19] MED LIST changes: +AUGMENTIN 875875 MG PO; +CIPRO500 MG PO; +HYDROCODONE-AC1 EAC1 PO; +KEPPRA1000 MG PO; +OXCARBAZEPINE300 M1 PO; +TRILEPTAL150 MG PO; +VITAMIN D31250 MCG PO
[2020-11-19 07:55] LABS: ALBUMIN 3.2 gm/dl (3.1-4.5); ALKALINE PHOSPHATASE 872 U/L (45-117); BUN 21 mg/dl (7-24); CHLORIDE 104 mmol/L (98-107); CREATININE 0.72 mg/dL (0.55-1.02); POTASSIUM 3.7 mmol/L (3.5-5.1); SGOT/AST 234 IU/L (3-35); SGPT/ALT 245 U/L (12-78); SODIUM 134 mmol/L (136-145); TOTAL PROTEIN 7.9 gm/dL (6.4-8.2)
== END | disposition home or self-care (01) ==
LOC: RAD 06:38 → LAB 06:38
PROVIDERS: Internal Medicine; ATTEND Emergency Medicine
DX: R74.01 Elevation of levels of liver transaminase levels (principal); Z90.49 Acquired absence of other specified parts of digestive tract

== ENCOUNTER 2020-12-03 00:22 | Inpatient (IN) | payer OTHER ==
[~2020-12-03] VITALS: Ht 149.9 cm; Wt 89.2 kg
[2020-12-03] VITALS (10 sets, daily range): BP systolic 104–136; BP diastolic 58–90
[~2020-12-03 00:22] MED LIST changes: -AUGMENTIN 875875 MG PO; -HYDROCODONE-AC1 EAC1 PO; -KEPPRA1000 MG PO; -TRILEPTAL150 MG PO
[2020-12-03 01:11] LABS: BILIRUBIN 2+ (Negative); BLOOD Negative (Negative); CLARITY Cloudy (Clear); COLOR Dark Yellow (Yellow); GLUCOSE Negative (Negative); KETONE Trace (Negative); LEUKO ESTERASE 2+ (Negative); NITRITE Negative (Negative); SPECIFIC GRAVITY 1.025 (1.001-1.030)
[2020-12-03 01:29] LABS: BASO % 0.3 % (0.0-1.0); EOS # 0.1 10*3/uL (0.0-0.4); EOS % 1.4 % (1.0-4.0); HEMATOCRIT 40.3 % (37.0-47.0); LYMPH # 1.1 10*3/uL (1.3-4.4); LYMPH % 11.7 % (27.0-41.0); MEAN CELL VOLUME 92.9 fl (81.0-99.0); MEAN CORPUSCULAR HGB 30.2 pg (27.0-31.0); MEAN CORPUSCULAR HGB CONC 32.5 g/dl (33.0-37.0); MEAN PLATELET VOLUME 10.6 fl (9.6-12.3); MONO # 0.5 10*3/uL (0.1-1.0); MONO % 5.5 % (3.0-9.0); NEUT # 7.6 10*3/uL (2.3-7.9); NEUT % 80.8 % (47.0-73.0); PLATELET COUNT AUTOMATED 327 10*3/uL (130-400); RED BLOOD COUNT 4.34 10*6/uL (4.10-5.10); RED CELL DISTRI WIDTH 13.4 % (0-14.5); WHITE BLOOD COUNT 9.4 10*3/uL (4.8-10.8)
[2020-12-03 01:30] LABS: EPITHELIAL CELLS 31-40
[2020-12-03 01:31] LABS: BACTERIA 1+; WBC 16-20 wbc/hpf (0-5)
[2020-12-03 01:45] LABS: ALBUMIN 3.4 gm/dl (3.1-4.5); ALKALINE PHOSPHATASE 957 U/L (45-117); BUN 13 mg/dl (7-24); CHLORIDE 109 mmol/L (98-107); CREATININE 0.73 mg/dL (0.55-1.02); LIPASE 116 U/L (73-393); POTASSIUM 3.9 mmol/L (3.5-5.1); SGOT/AST 371 IU/L (3-35); SGPT/ALT 327 U/L (12-78); SODIUM 140 mmol/L (136-145); TOTAL PROTEIN 7.8 gm/dL (6.4-8.2)
[2020-12-03 06:15] LABS: ALBUMIN 3.2 gm/dl (3.1-4.5); BUN 11 mg/dl (7-24); CHLORIDE 108 mmol/L (98-107); CHOLESTEROL 298 mg/dL (<200); CREATININE 0.76 mg/dL (0.55-1.02); POTASSIUM 4.2 mmol/L (3.5-5.1); SGOT/AST 433 IU/L (3-35); SGPT/ALT 371 U/L (12-78); SODIUM 139 mmol/L (136-145); TRIGLYCERIDES 62 mg/dl (<150)
[2020-12-03 06:16] LABS: HEMATOCRIT 40.3 % (37.0-47.0); MEAN CELL VOLUME 92.9 fl (81.0-99.0); MEAN CORPUSCULAR HGB 30.2 pg (27.0-31.0); MEAN CORPUSCULAR HGB CONC 32.5 g/dl (33.0-37.0); MEAN PLATELET VOLUME 11.1 fl (9.6-12.3); PLATELET COUNT AUTOMATED 317 10*3/uL (130-400); RED BLOOD COUNT 4.34 10*6/uL (4.10-5.10); RED CELL DISTRI WIDTH 13.5 % (0-14.5); WHITE BLOOD COUNT 13.9 10*3/uL (4.8-10.8)
[2020-12-03 06:23] LABS: ALKALINE PHOSPHATASE 974 U/L (45-117); LDL CHOLESTEROL 222 mg/dL (9-159); TOTAL PROTEIN 7.9 gm/dL (6.4-8.2)
[2020-12-03 07:24] LABS: PLATELET SUFFICIENCY NORMAL (NORMAL); TOTAL CELLS COUNTED 100 #CELLS
[2020-12-03 07:29] LABS: ACT PARTIAL THROMBO TIME 26.1 SECONDS (20.0-32.1)
[2020-12-03 07:30] LABS: VITAMIN D, 25-HYDROXY 34.2 ng/mL (30-100)
[2020-12-03] MEDS ORDERED: KEPPRA1000 MG PO ×2 (08:24→08:25)
[2020-12-03] MEDS ORDERED: TRILEPTAL150 MG PO (08:26)
[2020-12-04] VITALS: BP 104/51; BP 138/72
[2020-12-04 07:03] LABS: ALBUMIN 2.5 gm/dl (3.1-4.5); ALKALINE PHOSPHATASE 679 U/L (45-117); BUN 9 mg/dl (7-24); CHLORIDE 109 mmol/L (98-107); CREATININE 0.75 mg/dL (0.55-1.02); POTASSIUM 4.1 mmol/L (3.5-5.1); SGOT/AST 181 IU/L (3-35); SGPT/ALT 239 U/L (12-78); SODIUM 140 mmol/L (136-145); TOTAL PROTEIN 6.5 gm/dL (6.4-8.2)
[2020-12-04 07:05] LABS: HEMATOCRIT 35.9 % (37.0-47.0); MEAN CORPUSCULAR HGB 30.2 pg (27.0-31.0); MEAN PLATELET VOLUME 11.8 fl (9.6-12.3); RED BLOOD COUNT 4.04 10*6/uL (4.10-5.10); RED CELL DISTRI WIDTH 14.1 % (0-14.5)
[2020-12-04 07:49] LABS: MEAN CELL VOLUME 88.9 fl (81.0-99.0); PLATELET COUNT AUTOMATED 213 10*3/uL (130-400)
[2020-12-04 07:52] LABS: PLATELET SUFFICIENCY NORMAL (NORMAL); TOTAL CELLS COUNTED 100 #CELLS
[2020-12-04 08:00] VITALS: BP 119/78
[2020-12-04 12:00] VITALS: BP 127/70
[2020-12-04 16:00] VITALS: BP 109/44
[2020-12-04 20:00] VITALS: BP 131/57
[2020-12-05] VITALS: BP 116/45
[2020-12-05 07:48] LABS: ALBUMIN 2.4 gm/dl (3.1-4.5); ALKALINE PHOSPHATASE 660 U/L (45-117); BUN 7 mg/dl (7-24); CHLORIDE 108 mmol/L (98-107); POTASSIUM 3.5 mmol/L (3.5-5.1); SGOT/AST 101 IU/L (3-35); SGPT/ALT 168 U/L (12-78); SODIUM 139 mmol/L (136-145); TOTAL PROTEIN 6.7 gm/dL (6.4-8.2)
[2020-12-05 08:00] VITALS: BP 122/52
[2020-12-05 12:00] VITALS: BP 122/68
[2020-12-05 16:00] VITALS: BP 129/56
[2020-12-05 20:00] VITALS: BP 136/53
[2020-12-06] VITALS: BP 117/59
[2020-12-06 06:31] LABS: CHLORIDE 108 mmol/L (98-107); POTASSIUM 3.2 mmol/L (3.5-5.1); SODIUM 139 mmol/L (136-145)
[2020-12-06 06:36] LABS: BASO % 0.3 % (0.0-1.0); EOS # 0.2 10*3/uL (0.0-0.4); EOS % 2.6 % (1.0-4.0); HEMATOCRIT 32.7 % (37.0-47.0); LYMPH % 16.7 % (27.0-41.0); MEAN CELL VOLUME 91.6 fl (81.0-99.0); MEAN CORPUSCULAR HGB 30.5 pg (27.0-31.0); MEAN CORPUSCULAR HGB CONC 33.3 g/dl (33.0-37.0); MEAN PLATELET VOLUME 11.4 fl (9.6-12.3); MONO # 0.5 10*3/uL (0.1-1.0); MONO % 8.7 % (3.0-9.0); NEUT # 4.1 10*3/uL (2.3-7.9); NEUT % 71.5 % (47.0-73.0); PLATELET COUNT AUTOMATED 241 10*3/uL (130-400); RED BLOOD COUNT 3.57 10*6/uL (4.10-5.10); RED CELL DISTRI WIDTH 13.6 % (0-14.5); WHITE BLOOD COUNT 5.8 10*3/uL (4.8-10.8)
[2020-12-06 06:43] LABS: ALBUMIN 2.3 gm/dl (3.1-4.5); ALKALINE PHOSPHATASE 612 U/L (45-117); BUN 9 mg/dl (7-24); CREATININE 0.69 mg/dL (0.55-1.02); LIPASE 153 U/L (73-393); SGOT/AST 90 IU/L (3-35); SGPT/ALT 140 U/L (12-78); TOTAL PROTEIN 6.5 gm/dL (6.4-8.2)
[2020-12-06 08:00] VITALS: BP 109/70
[2020-12-06 12:00] VITALS: BP 110/72
[2020-12-06] MEDS ORDERED: AUGMENTIN 875875 MG PO (12:46)
[2020-12-06] MEDS ORDERED: HYDROCODONE-AC1 EAC1 PO (12:47)
== END 2020-12-06 15:15 | disposition home or self-care (01) | DRG 720 ==
LOC: ED 00:22 → 4E 04:16 → EDHOLD 04:16 → 4E 07:14
PROVIDERS: Emergency Medicine; Hospitalist; Internal Medicine; Registered Nurse; ADMIT Emergency Medicine; ATTEND Emergency Medicine
PROC: 0FPB8DZ Removal of Intraluminal Device from Hepatobiliary Duct, Via Natural or Artificial Opening Endoscopic (ICD-10-PCS; principal; 2020-12-03)
PROC: 0F798DZ Dilation of Common Bile Duct with Intraluminal Device, Via Natural or Artificial Opening Endoscopic (ICD-10-PCS; 2020-12-03)
DX: A41.9 Sepsis, unspecified organism (principal); G40.909 Epilepsy, unspecified, not intractable, without status epilepticus; E43 Unspecified severe protein-calorie malnutrition; N30.00 Acute cystitis without hematuria; K80.31 Calculus of bile duct with cholangitis, unspecified, with obstruction; F41.9 Anxiety disorder, unspecified; E66.9 Obesity, unspecified; T85.590A Other mechanical complication of bile duct prosthesis, initial encounter; Y83.8 Other surgical procedures as the cause of abnormal reaction of the patient, or of later complication, without mention of misadventure at the time of the procedure; K57.90 Diverticulosis of intestine, part unspecified, without perforation or abscess without bleeding; Z83.3 Family history of diabetes mellitus; Z80.8 Family history of malignant neoplasm of other organs or systems; Z87.440 Personal history of urinary (tract) infections; Z88.1 Allergy status to other antibiotic agents; Z88.6 Allergy status to analgesic agent; Z79.899 Other long term (current) drug therapy; Y92.89 Other specified places as the place of occurrence of the external cause; Z68.39 Body mass index [BMI] 39.0-39.9, adult

== ENCOUNTER → 2020-12-10 | Outpatient (CLI) | payer OTHER ==
[~2020-12-10] MED LIST changes: +AUGMENTIN 875875 MG PO; +HYDROCODONE-AC1 EAC1 PO; +KEPPRA1000 MG PO; +TRILEPTAL150 MG PO
[2020-12-10 15:02] LABS: ALBUMIN 3.1 gm/dl (3.1-4.5); ALKALINE PHOSPHATASE 898 U/L (45-117); BUN 11 mg/dl (7-24); CHLORIDE 105 mmol/L (98-107); CREATININE 0.72 mg/dL (0.55-1.02); POTASSIUM 3.5 mmol/L (3.5-5.1); SGOT/AST 248 IU/L (3-35); SGPT/ALT 284 U/L (12-78); SODIUM 136 mmol/L (136-145); TOTAL PROTEIN 8.2 gm/dL (6.4-8.2)
== END | disposition home or self-care (01) ==
LOC: LAB 14:26
PROVIDERS: ATTEND Student in an Organized Health Care Education/Training Program
DX: K83.09 Other cholangitis (principal)

== ENCOUNTER → 2020-12-13 | Outpatient (CLI) | payer OTHER ==
[2020-12-13 09:58] LABS: ALBUMIN 2.9 gm/dl (3.1-4.5); TOTAL PROTEIN 7.6 gm/dL (6.4-8.2)
== END | disposition home or self-care (01) ==
LOC: LAB 09:30
PROVIDERS: ATTEND Internal Medicine Gastroenterology
DX: K83.1 Obstruction of bile duct (principal)

== ENCOUNTER → 2021-01-03 | Outpatient (CLI) | payer OTHER ==
[2021-01-03 11:23] LABS: ALBUMIN 3.1 gm/dl (3.1-4.5); ALKALINE PHOSPHATASE 386 U/L (45-117); SGOT/AST 57 IU/L (3-35); SGPT/ALT 47 U/L (12-78); TOTAL PROTEIN 7.6 gm/dL (6.4-8.2)
== END | disposition home or self-care (01) ==
LOC: LAB 10:11
PROVIDERS: ATTEND Internal Medicine Gastroenterology
DX: K83.1 Obstruction of bile duct (principal)

== ENCOUNTER 2021-01-24 04:09 | Emergency (ER) | payer OTHER ==
[~2021-01-24] VITALS: Ht 152.4 cm; Wt 72.6 kg
[2021-01-24 05:33] LABS: ALBUMIN 3.2 gm/dl (3.1-4.5); ALKALINE PHOSPHATASE 323 U/L (45-117); BUN 10 mg/dl (7-24); CHLORIDE 111 mmol/L (98-107); CREATININE 0.72 mg/dL (0.55-1.02); LIPASE 70 U/L (73-393); POTASSIUM 3.4 mmol/L (3.5-5.1); SGOT/AST 23 IU/L (3-35); SGPT/ALT 31 U/L (12-78); SODIUM 140 mmol/L (136-145); TOTAL PROTEIN 7.5 gm/dL (6.4-8.2)
[2021-01-24 06:01] LABS: BASO % 0.7 % (0.0-1.0); EOS # 0.2 10*3/uL (0.0-0.4); EOS % 4.1 % (1.0-4.0); HEMATOCRIT 38.9 % (37.0-47.0); LYMPH # 1.7 10*3/uL (1.3-4.4); LYMPH % 30.6 % (27.0-41.0); MEAN CELL VOLUME 90.5 fl (81.0-99.0); MEAN CORPUSCULAR HGB 30.2 pg (27.0-31.0); MEAN CORPUSCULAR HGB CONC 33.4 g/dl (33.0-37.0); MEAN PLATELET VOLUME 11.3 fl (9.6-12.3); MONO # 0.5 10*3/uL (0.1-1.0); NEUT # 3.1 10*3/uL (2.3-7.9); NEUT % 55.5 % (47.0-73.0); PLATELET COUNT AUTOMATED 276 10*3/uL (130-400); RED CELL DISTRI WIDTH 13.1 % (0-14.5); WHITE BLOOD COUNT 5.6 10*3/uL (4.8-10.8)
== END 2021-01-24 09:08 | disposition home or self-care (01) ==
LOC: ED 04:09
PROVIDERS: Emergency Medicine
DX: R10.11 Right upper quadrant pain (principal); R11.0 Nausea; Z88.1 Allergy status to other antibiotic agents; Z88.6 Allergy status to analgesic agent; Z79.899 Other long term (current) drug therapy

== ENCOUNTER 2021-01-24 15:11 | Emergency (ER) | payer OTHER ==
[2021-01-24 20:49] LABS: BASO % 0.4 % (0.0-1.0); EOS # 0.2 10*3/uL (0.0-0.4); HEMATOCRIT 38.6 % (37.0-47.0); LYMPH # 1.5 10*3/uL (1.3-4.4); LYMPH % 20.3 % (27.0-41.0); MEAN CORPUSCULAR HGB CONC 32.9 g/dl (33.0-37.0); MEAN PLATELET VOLUME 10.9 fl (9.6-12.3); MONO # 0.5 10*3/uL (0.1-1.0); MONO % 6.7 % (3.0-9.0); NEUT # 5.2 10*3/uL (2.3-7.9); NEUT % 70.3 % (47.0-73.0); PLATELET COUNT AUTOMATED 275 10*3/uL (130-400); RED BLOOD COUNT 4.24 10*6/uL (4.10-5.10); RED CELL DISTRI WIDTH 13.2 % (0-14.5); WHITE BLOOD COUNT 7.4 10*3/uL (4.8-10.8)
[2021-01-24 21:05] LABS: ALBUMIN 3.2 gm/dl (3.1-4.5); ALKALINE PHOSPHATASE 319 U/L (45-117); BUN 9 mg/dl (7-24); CHLORIDE 110 mmol/L (98-107); CREATININE 0.63 mg/dL (0.55-1.02); LIPASE 57 U/L (73-393); POTASSIUM 3.8 mmol/L (3.5-5.1); SGOT/AST 22 IU/L (3-35); SGPT/ALT 29 U/L (12-78); SODIUM 141 mmol/L (136-145); TOTAL PROTEIN 7.4 gm/dL (6.4-8.2)
[2021-01-24 21:39] LABS: BILIRUBIN Negative (Negative); BLOOD Negative (Negative); CLARITY Clear (Clear); COLOR Yellow (Yellow); GLUCOSE Negative (Negative); KETONE 1+ (Negative); LEUKO ESTERASE 2+ (Negative); NITRITE Negative (Negative); SPECIFIC GRAVITY >= 1.030 (1.001-1.030); UROBILINOGEN 0.2 E.U./dl (0.0-1.0)
[2021-01-24 21:51] LABS: RBC 0-2 rbc/hpf (0-2)
[2021-01-24 21:52] LABS: BACTERIA 2+
== END 2021-01-25 02:16 | disposition home or self-care (01) ==
LOC: ED 15:11
PROVIDERS: Emergency Medicine
DX: R10.9 Unspecified abdominal pain (principal); Z88.1 Allergy status to other antibiotic agents; Z88.6 Allergy status to analgesic agent; Z79.899 Other long term (current) drug therapy

== ENCOUNTER 2021-03-02 21:47 | Emergency (ER) | payer OTHER ==
[~2021-03-02] VITALS: Ht 149.8 cm; Wt 85.3 kg
[2021-03-02 22:54] LABS: BASO % 0.5 % (0.0-1.0); EOS # 0.2 10*3/uL (0.0-0.4); EOS % 2.3 % (1.0-4.0); LYMPH # 1.3 10*3/uL (1.3-4.4); LYMPH % 15.5 % (27.0-41.0); MEAN CELL VOLUME 92.3 fl (81.0-99.0); MEAN CORPUSCULAR HGB 29.9 pg (27.0-31.0); MEAN CORPUSCULAR HGB CONC 32.4 g/dl (33.0-37.0); MONO # 0.5 10*3/uL (0.1-1.0); MONO % 5.9 % (3.0-9.0); NEUT # 6.3 10*3/uL (2.3-7.9); NEUT % 75.6 % (47.0-73.0); PLATELET COUNT AUTOMATED 301 10*3/uL (130-400); RED BLOOD COUNT 4.01 10*6/uL (4.10-5.10); RED CELL DISTRI WIDTH 13.2 % (0-14.5); WHITE BLOOD COUNT 8.3 10*3/uL (4.8-10.8)
[2021-03-02 23:10] LABS: ALBUMIN 3.2 gm/dl (3.1-4.5); ALKALINE PHOSPHATASE 352 U/L (45-117); BUN 21 mg/dl (7-24); CHLORIDE 112 mmol/L (98-107); CREATININE 0.69 mg/dL (0.55-1.02); LIPASE 170 U/L (73-393); POTASSIUM 4.1 mmol/L (3.5-5.1); SGOT/AST 42 IU/L (3-35); SGPT/ALT 59 U/L (12-78); SODIUM 141 mmol/L (136-145); TOTAL PROTEIN 7.5 gm/dL (6.4-8.2)
[2021-03-02 23:23] LABS: BILIRUBIN Negative (Negative); BLOOD Negative (Negative); CLARITY Turbid (Clear); COLOR Dark Yellow (Yellow); GLUCOSE Negative (Negative); KETONE Trace (Negative); LEUKO ESTERASE 2+ (Negative); NITRITE Negative (Negative); SPECIFIC GRAVITY >= 1.030 (1.001-1.030)
[2021-03-02 23:50] LABS: BACTERIA 3+; EPITHELIAL CELLS TNTC
[2021-03-02 23:51] LABS: WBC 21-30 wbc/hpf (0-5)
[2021-03-03] MEDS ORDERED: CEPHALEXIN500 M1 PO (03:59)
== END 2021-03-03 04:58 | disposition home or self-care (01) ==
LOC: ED 21:47
PROVIDERS: Emergency Medicine
DX: N39.0 Urinary tract infection, site not specified (principal); Z88.1 Allergy status to other antibiotic agents; Z88.6 Allergy status to analgesic agent; Z79.899 Other long term (current) drug therapy

== ENCOUNTER 2021-03-03 22:35 | Emergency (ER) | payer OTHER ==
[~2021-03-03] VITALS: Ht 149.8 cm; Wt 85.3 kg
== END 2021-03-03 23:44 | disposition home or self-care (01) ==
LOC: ED 22:35
DX: N39.0 Urinary tract infection, site not specified (principal); Z88.1 Allergy status to other antibiotic agents; Z88.6 Allergy status to analgesic agent; Z79.899 Other long term (current) drug therapy

== ENCOUNTER 2021-06-20 23:16 | Emergency (ER) | payer OTHER ==
[~2021-06-20] VITALS: Ht 149.8 cm; Wt 77.1 kg
== END 2021-06-21 02:01 | disposition home or self-care (01) ==
LOC: ED 23:16
DX: S39.012A Strain of muscle, fascia and tendon of lower back, initial encounter (principal); Z79.899 Other long term (current) drug therapy; Z88.1 Allergy status to other antibiotic agents; X58.XXXA Exposure to other specified factors, initial encounter; Y93.89 Activity, other specified; Y92.89 Other specified places as the place of occurrence of the external cause; Y99.8 Other external cause status

== ENCOUNTER 2021-06-24 13:19 | Emergency (ER) | payer OTHER ==
[2021-06-24 15:10] LABS: BILIRUBIN Negative (Negative); BLOOD Negative (Negative); CLARITY Cloudy (Clear); COLOR Yellow (Yellow); GLUCOSE Negative (Negative); KETONE Negative (Negative); LEUKO ESTERASE 1+ (Negative); NITRITE Negative (Negative); SPECIFIC GRAVITY >= 1.030 (1.001-1.030); UROBILINOGEN 0.2 E.U./dl (0.0-1.0)
[2021-06-24 15:43] LABS: BACTERIA 1+; EPITHELIAL CELLS 16-20
[2021-06-24] MEDS ORDERED: CEFUROXIME AXE500 MG PO (19:04)
== END 2021-06-24 19:26 | disposition home or self-care (01) ==
LOC: ED 13:19
PROVIDERS: Physician Assistant
DX: N39.0 Urinary tract infection, site not specified (principal); R19.7 Diarrhea, unspecified; Z88.1 Allergy status to other antibiotic agents; Z88.6 Allergy status to analgesic agent; Z88.8 Allergy status to other drugs, medicaments and biological substances; Z79.899 Other long term (current) drug therapy

== ENCOUNTER 2021-08-14 21:41 | Emergency (ER) | payer OTHER ==
[~2021-08-14] VITALS: Ht 149.8 cm; Wt 77.1 kg
[~2021-08-14 21:41] MED LIST changes: +CEFUROXIME AXE500 MG PO
[2021-08-14] MEDS ORDERED: LIPITOR80 MG PO (22:33)
[2021-08-14 23:38] LABS: BILIRUBIN Negative (Negative); BLOOD Negative (Negative); CLARITY Clear (Clear); COLOR Yellow (Yellow); GLUCOSE Negative (Negative); KETONE Trace (Negative); LEUKO ESTERASE 2+ (Negative); NITRITE Negative (Negative); SPECIFIC GRAVITY >= 1.030 (1.001-1.030); UROBILINOGEN 0.2 E.U./dl (0.0-1.0)
[2021-08-14 23:58] LABS: ALKALINE PHOSPHATASE 302 U/L (45-117); BUN 18 mg/dl (7-24); CHLORIDE 111 mmol/L (98-107); CREATININE 0.65 mg/dL (0.55-1.02); LIPASE 65 U/L (73-393); POTASSIUM 3.7 mmol/L (3.5-5.1); SGOT/AST 34 IU/L (3-35); SGPT/ALT 39 U/L (12-78); SODIUM 139 mmol/L (136-145); TOTAL PROTEIN 7.4 gm/dL (6.4-8.2)
[2021-08-15] LABS: BACTERIA 1+; EPITHELIAL CELLS 16-20
[2021-08-15 00:23] LABS: BASO % 0.3 % (0.0-1.0); EOS # 0.2 10*3/uL (0.0-0.4); HEMATOCRIT 38.7 % (37.0-47.0); MEAN CELL VOLUME 91.3 fl (81.0-99.0); MEAN CORPUSCULAR HGB 30.2 pg (27.0-31.0); MEAN CORPUSCULAR HGB CONC 33.1 g/dl (33.0-37.0); MEAN PLATELET VOLUME 10.7 fl (9.6-12.3); MONO # 0.6 10*3/uL (0.1-1.0); MONO % 5.6 % (3.0-9.0); NEUT # 7.8 10*3/uL (2.3-7.9); NEUT % 72.8 % (47.0-73.0); PLATELET COUNT AUTOMATED 252 10*3/uL (130-400); RED BLOOD COUNT 4.24 10*6/uL (4.10-5.10); RED CELL DISTRI WIDTH 13.1 % (0-14.5); WHITE BLOOD COUNT 10.6 10*3/uL (4.8-10.8)
[2021-08-15] MEDS ORDERED: CIPRO500 MG PO (02:02)
== END 2021-08-15 02:18 | disposition home or self-care (01) ==
LOC: ED 21:41
PROVIDERS: Emergency Medicine
DX: R10.13 Epigastric pain (principal); N39.0 Urinary tract infection, site not specified; Z88.1 Allergy status to other antibiotic agents; Z88.6 Allergy status to analgesic agent; Z79.899 Other long term (current) drug therapy; Z90.49 Acquired absence of other specified parts of digestive tract; Z98.890 Other specified postprocedural states

== ENCOUNTER 2021-08-25 14:59 | Emergency (ER) | payer OTHER ==
[~2021-08-25 14:59] MED LIST changes: +LIPITOR80 MG PO
[2021-08-25] MEDS ORDERED: NAPROXEN250 MG PO (15:33)
[2021-08-25] MEDS ORDERED: TYLENOL325 M1 PO (15:33)
== END 2021-08-25 15:35 | disposition home or self-care (01) ==
LOC: ED 14:59
DX: H61.22 Impacted cerumen, left ear (principal)

== ENCOUNTER 2021-10-21 18:05 | Emergency (ER) | payer OTHER ==
[~2021-10-21] VITALS: Wt 79.4 kg
[~2021-10-21 18:05] MED LIST changes: +NAPROXEN250 MG PO; +TYLENOL325 M1 PO
[2021-10-21 21:12] LABS: ALKALINE PHOSPHATASE 349 U/L (45-117); BUN 10 mg/dl (7-24); CHLORIDE 113 mmol/L (98-107); CREATININE 0.62 mg/dL (0.55-1.02); LIPASE 88 U/L (73-393); POTASSIUM 4.4 mmol/L (3.5-5.1); SGOT/AST 55 IU/L (3-35); SGPT/ALT 81 U/L (12-78); SODIUM 141 mmol/L (136-145); TOTAL PROTEIN 6.4 gm/dL (6.4-8.2)
[2021-10-21 21:58] LABS: BASO % 0.3 % (0.0-1.0); EOS # 0.1 10*3/uL (0.0-0.4); EOS % 0.7 % (1.0-4.0); HEMATOCRIT 39.3 % (37.0-47.0); LYMPH # 1.6 10*3/uL (1.3-4.4); LYMPH % 15.8 % (27.0-41.0); MEAN CORPUSCULAR HGB 30.6 pg (27.0-31.0); MEAN CORPUSCULAR HGB CONC 32.6 g/dl (33.0-37.0); MEAN PLATELET VOLUME 10.3 fl (9.6-12.3); MONO # 0.6 10*3/uL (0.1-1.0); MONO % 6.3 % (3.0-9.0); NEUT # 7.8 10*3/uL (2.3-7.9); NEUT % 76.6 % (47.0-73.0); PLATELET COUNT AUTOMATED 227 10*3/uL (130-400); RED BLOOD COUNT 4.18 10*6/uL (4.10-5.10); RED CELL DISTRI WIDTH 12.9 % (0-14.5); WHITE BLOOD COUNT 10.2 10*3/uL (4.8-10.8)
== END 2021-10-21 22:44 | disposition home or self-care (01) ==
LOC: ED 18:05
PROVIDERS: Emergency Medicine
DX: R10.9 Unspecified abdominal pain (principal); R11.0 Nausea; E66.9 Obesity, unspecified; G40.909 Epilepsy, unspecified, not intractable, without status epilepticus; Z88.1 Allergy status to other antibiotic agents; Z88.8 Allergy status to other drugs, medicaments and biological substances; Z79.899 Other long term (current) drug therapy; Z90.49 Acquired absence of other specified parts of digestive tract; Z98.890 Other specified postprocedural states

== ENCOUNTER 2021-10-27 12:42 | Emergency (ER) | payer OTHER ==
[2021-10-27] MEDS ORDERED: CETIRIZINE10 MG PO (13:18)
[2021-10-27] MEDS ORDERED: OMNICEF300 MG PO (13:18)
== END 2021-10-27 13:45 | disposition home or self-care (01) ==
LOC: ED 12:42
DX: H92.01 Otalgia, right ear (principal); Z88.6 Allergy status to analgesic agent; Z88.1 Allergy status to other antibiotic agents; Z88.8 Allergy status to other drugs, medicaments and biological substances; Z79.899 Other long term (current) drug therapy; Z90.49 Acquired absence of other specified parts of digestive tract

== ENCOUNTER 2021-11-20 12:32 | Emergency (ER) | payer OTHER ==
[~2021-11-20] VITALS: Wt 74.8 kg
[~2021-11-20 12:32] MED LIST changes: +CETIRIZINE10 MG PO; +OMNICEF300 MG PO
== END 2021-11-20 14:30 | disposition home or self-care (01) ==
LOC: ED 12:32
DX: S90.32XA Contusion of left foot, initial encounter (principal); Z79.899 Other long term (current) drug therapy; Z88.6 Allergy status to analgesic agent; Z88.1 Allergy status to other antibiotic agents; W22.8XXA Striking against or struck by other objects, initial encounter; Y93.89 Activity, other specified; Y92.89 Other specified places as the place of occurrence of the external cause; Y99.9 Unspecified external cause status

== ENCOUNTER 2021-12-23 19:47 | Emergency (ER) | payer OTHER ==
[~2021-12-23] VITALS: Ht 154.9 cm; Wt 76.2 kg
[2021-12-23 23:13] LABS: ALKALINE PHOSPHATASE 340 U/L (45-117); BUN 19 mg/dl (7-24); CHLORIDE 107 mmol/L (98-107); CREATININE 0.66 mg/dL (0.55-1.02); LIPASE 101 U/L (73-393); POTASSIUM 4.1 mmol/L (3.5-5.1); SGOT/AST 49 IU/L (3-35); SGPT/ALT 81 U/L (12-78); SODIUM 132 mmol/L (136-145)
[2021-12-23 23:21] LABS: BASO % 0.3 % (0.0-1.0); EOS % 0.3 % (1.0-4.0); HEMATOCRIT 38.4 % (37.0-47.0); LYMPH # 1.9 10*3/uL (1.3-4.4); LYMPH % 23.8 % (27.0-41.0); MEAN CORPUSCULAR HGB 31.4 pg (27.0-31.0); MEAN CORPUSCULAR HGB CONC 33.1 g/dl (33.0-37.0); MEAN PLATELET VOLUME 9.9 fl (9.6-12.3); MONO # 0.5 10*3/uL (0.1-1.0); MONO % 6.9 % (3.0-9.0); NEUT # 5.4 10*3/uL (2.3-7.9); NEUT % 68.6 % (47.0-73.0); PLATELET COUNT AUTOMATED 297 10*3/uL (130-400); RED BLOOD COUNT 4.04 10*6/uL (4.10-5.10); RED CELL DISTRI WIDTH 13.5 % (0-14.5); WHITE BLOOD COUNT 7.8 10*3/uL (4.8-10.8)
[2021-12-23 23:32] LABS: BILIRUBIN Negative (Negative); BLOOD Negative (Negative); CLARITY Clear (Clear); COLOR Yellow (Yellow); GLUCOSE Negative (Negative); KETONE Negative (Negative); LEUKO ESTERASE 2+ (Negative); NITRITE Negative (Negative); SPECIFIC GRAVITY >= 1.030 (1.001-1.030); UROBILINOGEN 0.2 E.U./dl (0.0-1.0)
[2021-12-23 23:51] LABS: BACTERIA 1+; WBC 21-30 wbc/hpf (0-5)
== END 2021-12-24 02:37 | disposition home or self-care (01) ==
LOC: ED 19:47
PROVIDERS: Emergency Medicine
DX: R19.7 Diarrhea, unspecified (principal); Z20.822 Contact with and (suspected) exposure to COVID-19; R11.0 Nausea; R10.11 Right upper quadrant pain; E66.9 Obesity, unspecified; G40.909 Epilepsy, unspecified, not intractable, without status epilepticus; F41.9 Anxiety disorder, unspecified; Z88.1 Allergy status to other antibiotic agents; Z88.8 Allergy status to other drugs, medicaments and biological substances; Z79.2 Long term (current) use of antibiotics; Z79.899 Other long term (current) drug therapy; Z68.30 Body mass index [BMI] 30.0-30.9, adult; Z90.49 Acquired absence of other specified parts of digestive tract

== ENCOUNTER 2021-12-26 16:16 | Emergency (ER) | payer OTHER ==
[2021-12-26 18:10] LABS: BASO % 0.1 % (0.0-1.0); EOS % 0.4 % (1.0-4.0); HEMATOCRIT 37.9 % (37.0-47.0); LYMPH # 1.2 10*3/uL (1.3-4.4); LYMPH % 15.2 % (27.0-41.0); MEAN CELL VOLUME 95.2 fl (81.0-99.0); MEAN CORPUSCULAR HGB 31.7 pg (27.0-31.0); MEAN CORPUSCULAR HGB CONC 33.2 g/dl (33.0-37.0); MEAN PLATELET VOLUME 9.7 fl (9.6-12.3); MONO # 0.5 10*3/uL (0.1-1.0); MONO % 6.3 % (3.0-9.0); NEUT # 6.3 10*3/uL (2.3-7.9); NEUT % 77.8 % (47.0-73.0); PLATELET COUNT AUTOMATED 283 10*3/uL (130-400); RED BLOOD COUNT 3.98 10*6/uL (4.10-5.10); RED CELL DISTRI WIDTH 13.2 % (0-14.5); WHITE BLOOD COUNT 8.2 10*3/uL (4.8-10.8)
[2021-12-26 18:30] LABS: ALKALINE PHOSPHATASE 323 U/L (45-117); BUN 18 mg/dl (7-24); CHLORIDE 106 mmol/L (98-107); CREATININE 0.68 mg/dL (0.55-1.02); POTASSIUM 4.1 mmol/L (3.5-5.1); SGOT/AST 40 IU/L (3-35); SGPT/ALT 62 U/L (12-78); SODIUM 137 mmol/L (136-145); TOTAL PROTEIN 7.1 gm/dL (6.4-8.2)
[2021-12-26] MEDS ORDERED: CARAFATE1 G1 PO (21:49)
== END 2021-12-26 22:12 | disposition home or self-care (01) ==
LOC: ED 16:16
PROVIDERS: Nurse Practitioner Family
DX: K21.9 Gastro-esophageal reflux disease without esophagitis (principal); Z88.6 Allergy status to analgesic agent; Z88.1 Allergy status to other antibiotic agents; Z88.8 Allergy status to other drugs, medicaments and biological substances; Z79.899 Other long term (current) drug therapy; Z90.49 Acquired absence of other specified parts of digestive tract; Z98.890 Other specified postprocedural states

== ENCOUNTER 2022-02-07 01:22 | Emergency (ER) | payer OTHER ==
[~2022-02-07] VITALS: Ht 162.5 cm; Wt 77.1 kg
[~2022-02-07 01:22] MED LIST changes: +CARAFATE1 G1 PO
[2022-02-07 01:55] LABS: BASO % 0.3 % (0.0-1.0); EOS % 0.2 % (1.0-4.0); HEMATOCRIT 35.5 % (37.0-47.0); LYMPH # 1.3 10*3/uL (1.3-4.4); LYMPH % 20.7 % (27.0-41.0); MEAN CELL VOLUME 92.2 fl (81.0-99.0); MEAN CORPUSCULAR HGB 31.7 pg (27.0-31.0); MEAN CORPUSCULAR HGB CONC 34.4 g/dl (33.0-37.0); MEAN PLATELET VOLUME 9.6 fl (9.6-12.3); MONO # 0.9 10*3/uL (0.1-1.0); MONO % 14.7 % (3.0-9.0); NEUT # 3.9 10*3/uL (2.3-7.9); NEUT % 63.9 % (47.0-73.0); PLATELET COUNT AUTOMATED 200 10*3/uL (130-400); RED BLOOD COUNT 3.85 10*6/uL (4.10-5.10); WHITE BLOOD COUNT 6.1 10*3/uL (4.8-10.8)
[2022-02-07 02:14] LABS: ALKALINE PHOSPHATASE 318 U/L (45-117); BUN 12 mg/dl (7-24); CHLORIDE 106 mmol/L (98-107); CREATININE 0.65 mg/dL (0.55-1.02); POTASSIUM 3.2 mmol/L (3.5-5.1); SGOT/AST 128 IU/L (3-35); SGPT/ALT 119 U/L (12-78); SODIUM 137 mmol/L (136-145)
== END 2022-02-07 02:46 | disposition home or self-care (01) ==
LOC: ED 01:22
PROVIDERS: Internal Medicine
DX: U07.1 COVID-19 (principal); Z20.822 Contact with and (suspected) exposure to COVID-19; E87.6 Hypokalemia; E44.0 Moderate protein-calorie malnutrition; R79.89 Other specified abnormal findings of blood chemistry; Z88.1 Allergy status to other antibiotic agents; Z88.6 Allergy status to analgesic agent; Z88.8 Allergy status to other drugs, medicaments and biological substances; Z79.899 Other long term (current) drug therapy; Z90.49 Acquired absence of other specified parts of digestive tract; Z98.890 Other specified postprocedural states

== ENCOUNTER → 2022-03-24 | Outpatient (CLI) | payer OTHER | END | disposition home or self-care (01) | LOC: RAD 17:03 | PROVIDERS: ATTEND Nurse Practitioner Primary Care | DX: R06.2 Wheezing (principal) ==

== ENCOUNTER → 2022-03-31 | Outpatient (CLI) | payer OTHER ==
[2022-03-31 08:40] LABS: BASO % 0.4 % (0.0-1.0); EOS % 0.6 % (1.0-4.0); HEMATOCRIT 35.3 % (37.0-47.0); LYMPH # 1.8 10*3/uL (1.3-4.4); LYMPH % 25.3 % (27.0-41.0); MEAN CELL VOLUME 93.4 fl (81.0-99.0); MEAN CORPUSCULAR HGB 32.3 pg (27.0-31.0); MEAN CORPUSCULAR HGB CONC 34.6 g/dl (33.0-37.0); MEAN PLATELET VOLUME 9.7 fl (9.6-12.3); MONO # 0.4 10*3/uL (0.1-1.0); MONO % 6.1 % (3.0-9.0); NEUT # 4.9 10*3/uL (2.3-7.9); NEUT % 67.3 % (47.0-73.0); PLATELET COUNT AUTOMATED 280 10*3/uL (130-400); RED BLOOD COUNT 3.78 10*6/uL (4.10-5.10); WHITE BLOOD COUNT 7.2 10*3/uL (4.8-10.8)
[2022-03-31 08:58] LABS: ALKALINE PHOSPHATASE 180 U/L (46-116); BUN 15 mg/dl (9-23); CHLORIDE 106 mmol/L (98-107); CHOLESTEROL 145 mg/dL (<200); CREATININE 0.66 mg/dL (0.55-1.02); FREE T4 0.82 ng/dl (0.89-1.76); LDL CHOLESTEROL 72 mg/dL (9-159); POTASSIUM 4.3 mmol/L (3.4-5.1); SGPT/ALT 25 U/L (10-49); SODIUM 139 mmol/L (136-145); THYROID STIM HORMONE (HS) 5.084 uIU/ml (0.550-4.780); TOTAL PROTEIN 7.2 gm/dL (6.0-8.0); TRIGLYCERIDES 57 mg/dl (<150)
== END | disposition home or self-care (01) ==
LOC: LAB 08:22
PROVIDERS: Nurse Practitioner Primary Care; ATTEND Psychiatry & Neurology Neurology
DX: Z51.81 Encounter for therapeutic drug level monitoring (principal); G40.219 Localization-related (focal) (partial) symptomatic epilepsy and epileptic syndromes with complex partial seizures, intractable, without status epilepticus; E55.9 Vitamin D deficiency, unspecified; R79.89 Other specified abnormal findings of blood chemistry; Z79.899 Other long term (current) drug therapy

== ENCOUNTER 2022-06-08 18:58 | Emergency (ER) | payer OTHER ==
[~2022-06-08] VITALS: Ht 149.8 cm; Wt 77.1 kg
[2022-06-08 19:55] LABS: BASO % 0.3 % (0.0-1.0); EOS # 0.1 10*3/uL (0.0-0.4); EOS % 1.7 % (1.0-4.0); HEMATOCRIT 38.4 % (37.0-47.0); LYMPH # 1.4 10*3/uL (1.3-4.4); LYMPH % 21.2 % (27.0-41.0); MEAN CELL VOLUME 94.8 fl (81.0-99.0); MEAN CORPUSCULAR HGB 31.4 pg (27.0-31.0); MEAN CORPUSCULAR HGB CONC 33.1 g/dl (33.0-37.0); MEAN PLATELET VOLUME 9.8 fl (9.6-12.3); MONO # 0.5 10*3/uL (0.1-1.0); MONO % 7.5 % (3.0-9.0); NEUT # 4.6 10*3/uL (2.3-7.9); PLATELET COUNT AUTOMATED 257 10*3/uL (130-400); RED BLOOD COUNT 4.05 10*6/uL (4.10-5.10); RED CELL DISTRI WIDTH 12.6 % (0-14.5); WHITE BLOOD COUNT 6.7 10*3/uL (4.8-10.8)
[2022-06-08 20:09] LABS: ALKALINE PHOSPHATASE 219 U/L (46-116); BUN 15 mg/dl (9-23); CHLORIDE 109 mmol/L (98-107); LIPASE 30 U/L (12-53); POTASSIUM 3.6 mmol/L (3.4-5.1); SGPT/ALT 48 U/L (10-49); TOTAL PROTEIN 6.9 gm/dL (6.0-8.0)
[2022-06-08] MEDS ORDERED: ONDANSETRON4 MG SL (21:17)
[2022-06-08] MEDS ORDERED: ANTI-DIARRHEAL2 MG PO (21:17)
== END 2022-06-08 21:34 | disposition home or self-care (01) ==
LOC: ED 18:58
PROVIDERS: Emergency Medicine
DX: K52.9 Noninfective gastroenteritis and colitis, unspecified (principal); K21.9 Gastro-esophageal reflux disease without esophagitis; Z88.1 Allergy status to other antibiotic agents; Z90.49 Acquired absence of other specified parts of digestive tract; Z98.890 Other specified postprocedural states; Z88.6 Allergy status to analgesic agent

== ENCOUNTER → 2022-06-12 | Outpatient (CLI) | payer OTHER ==
[~2022-06-12] MED LIST changes: +ANTI-DIARRHEAL2 MG PO; +ONDANSETRON4 MG SL
[2022-06-12 17:42] LABS: FREE T4 0.78 ng/dl (0.89-1.76); THYROID STIM HORMONE (HS) 2.691 uIU/ml (0.550-4.780)
[2022-06-13 08:08] LABS: THYROID PEROXIDASE (TPO) AB 14 IU/mL (0-34)
[2022-06-13 14:08] LABS: THYROGLOBULIN ANTIBODY <1.0 IU/mL (0.0-0.9)
== END ==
LOC: LAB 16:39
PROVIDERS: ATTEND Nurse Practitioner Primary Care
DX: R79.89 Other specified abnormal findings of blood chemistry (principal)

== ENCOUNTER 2022-06-26 21:54 | Emergency (ER) | payer OTHER ==
[~2022-06-26] VITALS: Ht 149.8 cm; Wt 77.3 kg
[2022-06-26 23:29] LABS: ALKALINE PHOSPHATASE 180 U/L (46-116); BUN 17 mg/dl (9-23); CHLORIDE 107 mmol/L (98-107); POTASSIUM 4.6 mmol/L (3.4-5.1); SGPT/ALT 44 U/L (10-49); TOTAL PROTEIN 6.7 gm/dL (6.0-8.0)
[2022-06-26 23:32] LABS: BASO % 0.3 % (0.0-1.0); EOS # 0.1 10*3/uL (0.0-0.4); EOS % 0.8 % (1.0-4.0); HEMATOCRIT 37.5 % (37.0-47.0); LYMPH # 1.3 10*3/uL (1.3-4.4); LYMPH % 14.4 % (27.0-41.0); MEAN CELL VOLUME 94.9 fl (81.0-99.0); MEAN CORPUSCULAR HGB 31.9 pg (27.0-31.0); MEAN CORPUSCULAR HGB CONC 33.6 g/dl (33.0-37.0); MEAN PLATELET VOLUME 10.1 fl (9.6-12.3); MONO # 0.5 10*3/uL (0.1-1.0); MONO % 5.3 % (3.0-9.0); NEUT # 6.7 10*3/uL (2.3-7.9); NEUT % 77.6 % (47.0-73.0); PLATELET COUNT AUTOMATED 280 10*3/uL (130-400); RED BLOOD COUNT 3.95 10*6/uL (4.10-5.10); RED CELL DISTRI WIDTH 12.6 % (0-14.5); WHITE BLOOD COUNT 8.7 10*3/uL (4.8-10.8)
== END 2022-06-27 04:26 | disposition home or self-care (01) ==
LOC: ED 21:54
PROVIDERS: Emergency Medicine
DX: G40.909 Epilepsy, unspecified, not intractable, without status epilepticus (principal); M54.50 Low back pain, unspecified; Z90.49 Acquired absence of other specified parts of digestive tract; Z98.890 Other specified postprocedural states; E66.9 Obesity, unspecified; K21.9 Gastro-esophageal reflux disease without esophagitis; Z79.899 Other long term (current) drug therapy; Z88.1 Allergy status to other antibiotic agents; Z88.8 Allergy status to other drugs, medicaments and biological substances

== ENCOUNTER 2022-08-26 18:52 | Emergency (ER) | payer OTHER ==
[~2022-08-26] VITALS: Ht 180.3 cm; Wt 73.9 kg
== END 2022-08-26 19:48 | disposition home or self-care (01) ==
LOC: ED 18:52
DX: T22.112A Burn of first degree of left forearm, initial encounter (principal); T31.0 Burns involving less than 10% of body surface; K21.9 Gastro-esophageal reflux disease without esophagitis; E87.6 Hypokalemia; F41.9 Anxiety disorder, unspecified; Z88.6 Allergy status to analgesic agent; Z88.1 Allergy status to other antibiotic agents; Z88.8 Allergy status to other drugs, medicaments and biological substances; Z86.16 Personal history of COVID-19; E87.8 Other disorders of electrolyte and fluid balance, not elsewhere classified; Z90.49 Acquired absence of other specified parts of digestive tract; Z98.890 Other specified postprocedural states; X17.XXXA Contact with hot engines, machinery and tools, initial encounter; Y93.89 Activity, other specified; Y92.89 Other specified places as the place of occurrence of the external cause; Y99.8 Other external cause status

== ENCOUNTER 2022-09-28 05:17 | Emergency (ER) | payer OTHER ==
[~2022-09-28] VITALS: Ht 149.8 cm; Wt 73.5 kg
[2022-09-28 05:59] LABS: BILIRUBIN Negative (Negative); BLOOD Negative (Negative); CLARITY Cloudy (Clear); COLOR Yellow (Yellow); GLUCOSE Negative (Negative); KETONE Negative (Negative); LEUKO ESTERASE 3+ (Negative); NITRITE Negative (Negative); SPECIFIC GRAVITY >= 1.030 (1.001-1.030)
[2022-09-28 07:49] LABS: BACTERIA 3+; WBC TNTC wbc/hpf (0-5)
[2022-09-28] MEDS ORDERED: MACROBID100 M1 PO (08:53)
== END 2022-09-28 09:00 | disposition home or self-care (01) ==
LOC: ED 05:17
PROVIDERS: Internal Medicine
DX: N39.0 Urinary tract infection, site not specified (principal); Z88.8 Allergy status to other drugs, medicaments and biological substances; Z88.1 Allergy status to other antibiotic agents; Z79.899 Other long term (current) drug therapy; Z90.49 Acquired absence of other specified parts of digestive tract

== ENCOUNTER 2022-10-16 14:56 | Emergency (ER) | payer OTHER ==
[~2022-10-16] VITALS: Ht 149.8 cm; Wt 72.6 kg
[~2022-10-16 14:56] MED LIST changes: -CLINDAMYCIN HC300 MG PO; -TRIAMCINOLONE430 GM TD
[2022-10-16] MEDS ORDERED: TRIAMCINOLONE430 GM TD (15:50)
[2022-10-16] MEDS ORDERED: CLINDAMYCIN HC300 MG PO (15:50)
== END 2022-10-16 16:00 | disposition home or self-care (01) ==
LOC: ED 14:56
DX: L03.211 Cellulitis of face (principal); L70.9 Acne, unspecified; Z88.8 Allergy status to other drugs, medicaments and biological substances; Z88.1 Allergy status to other antibiotic agents; Z79.2 Long term (current) use of antibiotics; Z79.899 Other long term (current) drug therapy

== ENCOUNTER → 2022-10-16 | Outpatient (CLI) | payer OTHER ==
[~2022-10-16] MED LIST changes: +CLINDAMYCIN HC300 MG PO; +MACROBID100 M1 PO; +TRIAMCINOLONE430 GM TD
== END | disposition home or self-care (01) ==
LOC: LAB 16:03
PROVIDERS: ATTEND Nurse Practitioner Primary Care
DX: N30.00 Acute cystitis without hematuria (principal)

== ENCOUNTER 2023-03-06 13:14 | Emergency (ER) | payer OTHER ==
[~2023-03-06] VITALS: Ht 149.8 cm; Wt 70.8 kg
[~2023-03-06 13:14] MED LIST changes: +CLINDAMYCIN HC300 MG PO; +TRIAMCINOLONE430 GM TD
[2023-03-06 13:55] LABS: BILIRUBIN Negative (Negative); BLOOD Negative (Negative); CLARITY Clear (Clear); COLOR Yellow (Yellow); GLUCOSE Negative (Negative); KETONE Negative (Negative); LEUKO ESTERASE 3+ (Negative); NITRITE Negative (Negative); UROBILINOGEN 0.2 E.U./dl (0.0-1.0)
[2023-03-06 14:18] LABS: BACTERIA 1+; EPITHELIAL CELLS 0-2; RBC 0-2 rbc/hpf (0-2)
[2023-03-06] MEDS ORDERED: HYDROCODONE-AC1 EAC1 PO (16:48)
[2023-03-06] MEDS ORDERED: MACROBID100 M1 PO (16:48)
== END 2023-03-06 17:04 | disposition home or self-care (01) ==
LOC: ED 13:14
PROVIDERS: Nurse Practitioner Family
DX: N39.0 Urinary tract infection, site not specified (principal); M54.50 Low back pain, unspecified; K21.9 Gastro-esophageal reflux disease without esophagitis; Z88.6 Allergy status to analgesic agent; Z88.1 Allergy status to other antibiotic agents; Z88.8 Allergy status to other drugs, medicaments and biological substances; Z98.890 Other specified postprocedural states; Z90.49 Acquired absence of other specified parts of digestive tract

== ENCOUNTER → 2023-05-18 | Outpatient (CLI) | payer OTHER ==
[2023-05-18 11:58] LABS: BASO % 0.3 % (0.0-1.0); EOS # 0.2 10*3/uL (0.0-0.4); EOS % 2.5 % (1.0-4.0); LYMPH # 1.7 10*3/uL (1.3-4.4); LYMPH % 28.3 % (27.0-41.0); MEAN CELL VOLUME 95.4 fl (81.0-99.0); MEAN CORPUSCULAR HGB 30.8 pg (27.0-31.0); MEAN CORPUSCULAR HGB CONC 32.3 g/dl (33.0-37.0); MEAN PLATELET VOLUME 10.4 fl (9.6-12.3); MONO # 0.4 10*3/uL (0.1-1.0); MONO % 6.6 % (3.0-9.0); NEUT # 3.7 10*3/uL (2.3-7.9); PLATELET COUNT AUTOMATED 263 10*3/uL (130-400); RED BLOOD COUNT 4.09 10*6/uL (4.10-5.10); RED CELL DISTRI WIDTH 12.9 % (0-14.5)
[2023-05-18 12:39] LABS: ALKALINE PHOSPHATASE 185 U/L (46-116); BUN 12 mg/dl (9-23); CHLORIDE 105 mmol/L (98-107); POTASSIUM 3.8 mmol/L (3.4-5.1); SGPT/ALT 17 U/L (5-49); TOTAL PROTEIN 7.3 gm/dL (6.0-8.0)
[2023-05-19 08:09] LABS: THYROID PEROXIDASE (TPO) AB 11 IU/mL (0-34)
[2023-05-20 09:08] LABS: THYROGLOBULIN ANTIBODY <1.0 IU/mL (0.0-0.9)
== END | disposition home or self-care (01) ==
LOC: LAB 11:29
PROVIDERS: Nurse Practitioner Primary Care; ATTEND Psychiatry & Neurology Neurology
DX: R94.6 Abnormal results of thyroid function studies (principal); G25.81 Restless legs syndrome; E55.9 Vitamin D deficiency, unspecified

== ENCOUNTER 2023-06-21 01:26 | Emergency (ER) | payer OTHER ==
[~2023-06-21] VITALS: Ht 149.8 cm; Wt 72.2 kg
[2023-06-21] MEDS ORDERED: SODIUM CHLORIDE 0.9% 1,000 ML IV ONE (01:45)
[2023-06-21] MEDS ORDERED: IOHEXOL 300 MG/ML 100 ML VIAL IV ONE (01:45)
[2023-06-21 03:18] LABS: BASO # 0.1 10*3/uL (0.0-0.1); BASO % 0.3 % (0.0-1.0); EOS # 0.3 10*3/uL (0.0-0.4); EOS % 1.5 % (1.0-4.0); HEMATOCRIT 40.4 % (37.0-47.0); LYMPH # 2.5 10*3/uL (1.3-4.4); LYMPH % 14.4 % (27.0-41.0); MEAN CELL VOLUME 95.5 fl (81.0-99.0); MEAN CORPUSCULAR HGB 31.2 pg (27.0-31.0); MEAN CORPUSCULAR HGB CONC 32.7 g/dl (33.0-37.0); MEAN PLATELET VOLUME 10.3 fl (9.6-12.3); MONO # 1.1 10*3/uL (0.1-1.0); MONO % 6.3 % (3.0-9.0); NEUT # 13.4 10*3/uL (2.3-7.9); NEUT % 77.2 % (47.0-73.0); PLATELET COUNT AUTOMATED 319 10*3/uL (130-400); RED BLOOD COUNT 4.23 10*6/uL (4.10-5.10); RED CELL DISTRI WIDTH 12.8 % (0-14.5); WHITE BLOOD COUNT 17.4 10*3/uL (4.8-10.8)
[2023-06-21 03:38] LABS: BUN 15 mg/dl (9-23); CHLORIDE 108 mmol/L (98-107); LIPASE 29 U/L (12-53); POTASSIUM 3.4 mmol/L (3.4-5.1)
[2023-06-21 05:25] LABS: BILIRUBIN Negative (Negative); BLOOD Negative (Negative); CLARITY Cloudy (Clear); COLOR Yellow (Yellow); GLUCOSE Negative (Negative); KETONE Trace (Negative); LEUKO ESTERASE 2+ (Negative); NITRITE Negative (Negative); SPECIFIC GRAVITY >= 1.030 (1.001-1.030); UROBILINOGEN 0.2 E.U./dl (0.0-1.0)
[2023-06-21 05:31] LABS: BACTERIA 1+; CALCIUM OXALATE CRYSTALS 1+; MUCOUS 1+; RBC 0-2 rbc/hpf (0-2); WBC 16-20 wbc/hpf (0-5)
[2023-06-21] MEDS ORDERED: Ondansetron Hydrochloride 4 MG TAB SL ONE (06:30)
[2023-06-21] MEDS ORDERED: Amoxicillin/Clavulanate Pota 875 MG TAB PO ONE (07:15)
[2023-06-21] MEDS ORDERED: HYDROCODONE-AC1 EAC1 PO (07:20)
[2023-06-21] MEDS ORDERED: COLACE 2-IN-11 EACH PO (07:20)
[2023-06-21] MEDS ORDERED: ONDANSETRON4 MG SL (07:20)
[2023-06-21] MEDS ORDERED: AMOX-CLAV 875-1 EACH PO (07:20)
== END 2023-06-21 07:31 | disposition home or self-care (01) ==
LOC: ED 01:26
PROVIDERS: Internal Medicine
DX: K57.92 Diverticulitis of intestine, part unspecified, without perforation or abscess without bleeding (principal); R11.2 Nausea with vomiting, unspecified; Z88.8 Allergy status to other drugs, medicaments and biological substances; Z88.1 Allergy status to other antibiotic agents; Z79.2 Long term (current) use of antibiotics; Z79.899 Other long term (current) drug therapy; Z90.49 Acquired absence of other specified parts of digestive tract

== ENCOUNTER 2023-06-23 21:24 | Emergency (ER) | payer OTHER ==
[~2023-06-23] VITALS: Ht 149.8 cm; Wt 68.9 kg
[~2023-06-23 21:24] MED LIST changes: +AMOX-CLAV 875-1 EACH PO; +COLACE 2-IN-11 EACH PO
[2023-06-23] MEDS ORDERED: SODIUM CHLORIDE 0.9% 1,000 ML IV ONE (22:05)
[2023-06-23 22:37] LABS: BASO % 0.4 % (0.0-1.0); EOS # 0.2 10*3/uL (0.0-0.4); HEMATOCRIT 36.9 % (37.0-47.0); LYMPH # 1.8 10*3/uL (1.3-4.4); LYMPH % 21.3 % (27.0-41.0); MEAN CELL VOLUME 95.3 fl (81.0-99.0); MEAN CORPUSCULAR HGB CONC 32.5 g/dl (33.0-37.0); MEAN PLATELET VOLUME 10.2 fl (9.6-12.3); MONO # 0.6 10*3/uL (0.1-1.0); MONO % 7.4 % (3.0-9.0); NEUT # 5.8 10*3/uL (2.3-7.9); NEUT % 68.7 % (47.0-73.0); PLATELET COUNT AUTOMATED 283 10*3/uL (130-400); RED BLOOD COUNT 3.87 10*6/uL (4.10-5.10); RED CELL DISTRI WIDTH 12.8 % (0-14.5); WHITE BLOOD COUNT 8.4 10*3/uL (4.8-10.8)
[2023-06-23 23:01] LABS: ALKALINE PHOSPHATASE 161 U/L (46-116); BUN 12 mg/dl (9-23); CHLORIDE 110 mmol/L (98-107); POTASSIUM 3.8 mmol/L (3.4-5.1); SGPT/ALT 16 U/L (5-49)
[2023-06-24 00:18] LABS: BILIRUBIN Negative (Negative); BLOOD Negative (Negative); CLARITY Cloudy (Clear); COLOR Yellow (Yellow); GLUCOSE Negative (Negative); KETONE Negative (Negative); LEUKO ESTERASE 1+ (Negative); NITRITE Negative (Negative); UROBILINOGEN 0.2 E.U./dl (0.0-1.0)
[2023-06-24 00:25] LABS: BACTERIA 1+; CALCIUM OXALATE CRYSTALS 2+; RBC 0-2 rbc/hpf (0-2)
== END 2023-06-24 02:35 | disposition home or self-care (01) ==
LOC: ED 21:24
PROVIDERS: Emergency Medicine
DX: R19.7 Diarrhea, unspecified (principal); R53.1 Weakness; K21.9 Gastro-esophageal reflux disease without esophagitis; E87.6 Hypokalemia; F41.9 Anxiety disorder, unspecified; E78.00 Pure hypercholesterolemia, unspecified; D64.9 Anemia, unspecified; Z88.6 Allergy status to analgesic agent; Z88.1 Allergy status to other antibiotic agents; Z88.8 Allergy status to other drugs, medicaments and biological substances; Z90.49 Acquired absence of other specified parts of digestive tract; Z98.890 Other specified postprocedural states

== ENCOUNTER 2023-08-10 13:49 | Emergency (ER) | payer OTHER ==
[~2023-08-10] VITALS: Ht 149.8 cm; Wt 68.0 kg
[2023-08-10] MEDS ORDERED: PREDNISONE50 MG PO (14:32)
[2023-08-10] MEDS ORDERED: methylPREDNISolone sod succ 125 MG VIAL IM ONE (14:35)
== END 2023-08-10 15:30 ==
LOC: ED 13:49
DX: M54.41 Lumbago with sciatica, right side (principal); M79.604 Pain in right leg; K21.9 Gastro-esophageal reflux disease without esophagitis; Z88.8 Allergy status to other drugs, medicaments and biological substances; Z90.49 Acquired absence of other specified parts of digestive tract; Z98.890 Other specified postprocedural states

== ENCOUNTER → 2023-08-13 | Outpatient (CLI) | payer OTHER ==
[~2023-08-13] MED LIST changes: +PREDNISONE50 MG PO
== END | disposition home or self-care (01) ==
LOC: RAD 15:19
PROVIDERS: ATTEND Nurse Practitioner Primary Care
DX: M47.817 Spondylosis without myelopathy or radiculopathy, lumbosacral region (principal); M54.41 Lumbago with sciatica, right side; S32.010S Wedge compression fracture of first lumbar vertebra, sequela; X58.XXXS Exposure to other specified factors, sequela

== ENCOUNTER 2023-11-04 19:24 | Emergency (ER) | payer OTHER ==
[~2023-11-04] VITALS: Ht 152.4 cm; Wt 72.6 kg
[2023-11-04] MEDS ORDERED: Meclizine Hydrochloride 25 MG TAB PO ONE (19:55)
[2023-11-04] MEDS ORDERED: diphenhydrAMINE hydrochloride 50 MG/ML VIAL IV ONE (19:55)
[2023-11-04] MEDS ORDERED: SODIUM CHLORIDE 0.9% 1,000 ML IV ONE (19:55)
[2023-11-04 20:14] LABS: BASO % 0.4 % (0.0-1.0); EOS # 0.2 10*3/uL (0.0-0.4); EOS % 2.6 % (1.0-4.0); HEMATOCRIT 38.7 % (37.0-47.0); LYMPH % 26.7 % (27.0-41.0); MEAN CELL VOLUME 93.9 fl (81.0-99.0); MEAN CORPUSCULAR HGB 30.6 pg (27.0-31.0); MEAN CORPUSCULAR HGB CONC 32.6 g/dl (33.0-37.0); MEAN PLATELET VOLUME 10.3 fl (9.6-12.3); MONO # 0.5 10*3/uL (0.1-1.0); MONO % 5.9 % (3.0-9.0); NEUT # 4.9 10*3/uL (2.3-7.9); NEUT % 64.1 % (47.0-73.0); PLATELET COUNT AUTOMATED 278 10*3/uL (130-400); RED BLOOD COUNT 4.12 10*6/uL (4.10-5.10); WHITE BLOOD COUNT 7.6 10*3/uL (4.8-10.8)
[2023-11-04 20:33] LABS: ALKALINE PHOSPHATASE 190 U/L (46-116); BUN 14 mg/dl (9-23); CHLORIDE 111 mmol/L (98-107); POTASSIUM 3.8 mmol/L (3.4-5.1); SGPT/ALT 25 U/L (5-49); TOTAL PROTEIN 7.2 gm/dL (6.0-8.0)
[2023-11-04] MEDS ORDERED: MECLIZINE HCL25 M2 PO (21:26)
== END 2023-11-04 21:45 | disposition home or self-care (01) ==
LOC: ED 19:24
PROVIDERS: Physician Assistant
DX: H81.10 Benign paroxysmal vertigo, unspecified ear (principal); Z88.6 Allergy status to analgesic agent; Z88.1 Allergy status to other antibiotic agents; Z79.2 Long term (current) use of antibiotics; Z79.899 Other long term (current) drug therapy

== ENCOUNTER 2023-12-19 14:12 | Emergency (ER) | payer OTHER ==
[~2023-12-19] VITALS: Ht 149.8 cm; Wt 63.5 kg
[~2023-12-19 14:12] MED LIST changes: +MECLIZINE HCL25 M2 PO
[2023-12-19] MEDS ORDERED: IOHEXOL 300 MG/ML 100 ML VIAL IV ONE (15:25)
[2023-12-19 15:45] LABS: BASO % 0.5 % (0.0-1.0); EOS # 0.2 10*3/uL (0.0-0.4); EOS % 2.1 % (1.0-4.0); HEMATOCRIT 37.5 % (37.0-47.0); LYMPH # 1.6 10*3/uL (1.3-4.4); LYMPH % 18.5 % (27.0-41.0); MEAN CELL VOLUME 94.5 fl (81.0-99.0); MEAN CORPUSCULAR HGB 30.7 pg (27.0-31.0); MEAN CORPUSCULAR HGB CONC 32.5 g/dl (33.0-37.0); MEAN PLATELET VOLUME 10.1 fl (9.6-12.3); MONO # 0.5 10*3/uL (0.1-1.0); MONO % 5.6 % (3.0-9.0); NEUT # 6.2 10*3/uL (2.3-7.9); NEUT % 73.1 % (47.0-73.0); PLATELET COUNT AUTOMATED 295 10*3/uL (130-400); RED BLOOD COUNT 3.97 10*6/uL (4.10-5.10); RED CELL DISTRI WIDTH 12.7 % (0-14.5); WHITE BLOOD COUNT 8.5 10*3/uL (4.8-10.8)
[2023-12-19] MEDS ORDERED: IOHEXOL 300 MG/ML 100 ML VIAL ONE (15:46)
[2023-12-19 16:08] LABS: BUN 13 mg/dl (9-23); CHLORIDE 107 mmol/L (98-107); POTASSIUM 3.8 mmol/L (3.4-5.1)
[2023-12-19] MEDS ORDERED: Piperacillin Sodium/Tazobact 100 ML IV ONE (18:05)
[2023-12-19] MEDS ORDERED: Vancomycin Hydrochloride 250 ML IV ONE (18:05)
== END 2023-12-19 22:26 | disposition short-term general hospital (02) ==
LOC: ED 14:12
PROVIDERS: Internal Medicine
DX: L03.213 Periorbital cellulitis (principal); L03.211 Cellulitis of face; M27.2 Inflammatory conditions of jaws; K02.9 Dental caries, unspecified; K21.9 Gastro-esophageal reflux disease without esophagitis; Z88.6 Allergy status to analgesic agent; Z88.1 Allergy status to other antibiotic agents; Z88.8 Allergy status to other drugs, medicaments and biological substances; Z90.49 Acquired absence of other specified parts of digestive tract; Z98.890 Other specified postprocedural states

== ENCOUNTER 2023-12-26 20:21 | Emergency (ER) | payer OTHER ==
[2023-12-26] MEDS ORDERED: SODIUM CHLORIDE 0.9% 1,000 ML IV ONE (21:00)
[2023-12-26] MEDS ORDERED: Meclizine Hydrochloride 12.5 MG TAB PO ONE (21:00)
[2023-12-26] MEDS ORDERED: Ondansetron Hydrochloride 4 MG/2 ML VIAL IV ONE (21:10)
[2023-12-26 21:38] LABS: BASO % 0.5 % (0.0-1.0); EOS # 0.1 10*3/uL (0.0-0.4); EOS % 1.8 % (1.0-4.0); HEMATOCRIT 38.3 % (37.0-47.0); LYMPH % 26.2 % (27.0-41.0); MEAN CELL VOLUME 91.6 fl (81.0-99.0); MEAN CORPUSCULAR HGB 30.6 pg (27.0-31.0); MEAN CORPUSCULAR HGB CONC 33.4 g/dl (33.0-37.0); MEAN PLATELET VOLUME 10.6 fl (9.6-12.3); MONO # 0.5 10*3/uL (0.1-1.0); MONO % 6.7 % (3.0-9.0); NEUT % 64.7 % (47.0-73.0); PLATELET COUNT AUTOMATED 282 10*3/uL (130-400); RED BLOOD COUNT 4.18 10*6/uL (4.10-5.10); RED CELL DISTRI WIDTH 12.6 % (0-14.5); WHITE BLOOD COUNT 7.7 10*3/uL (4.8-10.8)
[2023-12-26 21:57] LABS: BUN 15 mg/dl (9-23); CHLORIDE 104 mmol/L (98-107); POTASSIUM 3.8 mmol/L (3.4-5.1)
[2023-12-26] MEDS ORDERED: Ondansetron4 MG PO (22:25)
== END 2023-12-26 22:41 | disposition home or self-care (01) ==
LOC: ED 20:21
PROVIDERS: Internal Medicine
DX: R26.2 Difficulty in walking, not elsewhere classified (principal); Z53.29 Procedure and treatment not carried out because of patient's decision for other reasons; R11.0 Nausea; R53.1 Weakness; R42 Dizziness and giddiness; K21.9 Gastro-esophageal reflux disease without esophagitis; Z88.1 Allergy status to other antibiotic agents; Z88.6 Allergy status to analgesic agent; Z90.49 Acquired absence of other specified parts of digestive tract; Z98.890 Other specified postprocedural states

== ENCOUNTER 2024-03-30 21:44 | Emergency (ER) | payer OTHER ==
[~2024-03-30] VITALS: Ht 149.8 cm; Wt 62.1 kg
[~2024-03-30 21:44] MED LIST changes: +Ondansetron4 MG PO
[2024-03-30] MEDS ORDERED: AMOX-CLAV 875-1 EACH PO (23:04)
== END 2024-03-30 23:25 | disposition home or self-care (01) ==
LOC: ED 21:44
DX: J02.0 Streptococcal pharyngitis (principal); Z88.8 Allergy status to other drugs, medicaments and biological substances; Z88.1 Allergy status to other antibiotic agents; Z79.899 Other long term (current) drug therapy; Z90.49 Acquired absence of other specified parts of digestive tract

== ENCOUNTER → 2024-05-30 | Outpatient (CLI) | payer OTHER ==
[2024-05-30 14:51] LABS: BASO % 0.5 % (0.0-1.0); EOS # 0.1 10*3/uL (0.0-0.4); EOS % 2.2 % (1.0-4.0); HEMATOCRIT 39.4 % (37.0-47.0); MEAN CELL VOLUME 93.6 fl (81.0-99.0); MEAN CORPUSCULAR HGB 30.6 pg (27.0-31.0); MEAN CORPUSCULAR HGB CONC 32.7 g/dl (33.0-37.0); MEAN PLATELET VOLUME 10.2 fl (9.6-12.3); MONO # 0.3 10*3/uL (0.1-1.0); MONO % 5.1 % (3.0-9.0); NEUT # 4.1 10*3/uL (2.3-7.9); PLATELET COUNT AUTOMATED 276 10*3/uL (130-400); RED BLOOD COUNT 4.21 10*6/uL (4.10-5.10); RED CELL DISTRI WIDTH 13.2 % (0-14.5); WHITE BLOOD COUNT 5.9 10*3/uL (4.8-10.8)
[2024-05-30 15:16] LABS: ALKALINE PHOSPHATASE 194 U/L (46-116); SGPT/ALT 19 U/L (5-49); TOTAL PROTEIN 7.5 gm/dL (6.0-8.0)
[2024-05-30 15:19] LABS: ALKALINE PHOSPHATASE 193 U/L (46-116); BUN 14 mg/dl (9-23); CHLORIDE 107 mmol/L (98-107); POTASSIUM 3.7 mmol/L (3.4-5.1); SGPT/ALT 20 U/L (5-49); TOTAL PROTEIN 7.5 gm/dL (6.0-8.0)
== END | disposition home or self-care (01) ==
LOC: LAB 14:19
PROVIDERS: Nurse Practitioner Primary Care; ATTEND Psychiatry & Neurology Neurology
DX: E78.2 Mixed hyperlipidemia (principal); E55.9 Vitamin D deficiency, unspecified

== ENCOUNTER 2025-01-19 21:13 | Emergency (ER) | payer BC ==
[~2025-01-19] VITALS: Ht 149.8 cm; Wt 58.1 kg
[2025-01-19] MEDS ORDERED: SODIUM CHLORIDE 0.9% 1,000 ML IV ONE (22:00)
[2025-01-19 22:14] LABS: BASO # 0.0 10*3/uL (0.0-0.1); BASO % 0.7 % (0.0-1.0); EOS # 0.2 10*3/uL (0.0-0.4); EOS % 2.9 % (1.0-4.0); MEAN CELL VOLUME 90.7 fl (81.0-99.0); MEAN CORPUSCULAR HGB 29.9 pg (27.0-31.0); MEAN PLATELET VOLUME 9.6 fl (9.6-12.3); MONO # 0.4 10*3/uL (0.1-1.0); MONO % 8.0 % (3.0-9.0); NEUT # 2.8 10*3/uL (2.3-7.9); NEUT % 50.9 % (47.0-73.0); NUCLEATED RED BLOOD CELL 0.0 % (0.0-0.0); NUCLEATED RED BLOOD CELL 0.0 10*3/uL (0.0-0.0); PLATELET COUNT AUTOMATED 258 10*3/uL (130-400); RED CELL DISTRI WIDTH 12.7 % (0-14.5)
[2025-01-19 22:28] LABS: BUN 20 mg/dl (9-23)
[2025-01-19] MEDS ORDERED: GOOD NEIGHBOR M25 M1 PO (23:19)
[2025-01-19] MEDS ORDERED: Amoxicillin/Clavulanate Pota 875 MG TAB PO ONE (23:20)
== END 2025-01-19 23:28 | disposition home or self-care (01) ==
LOC: ED 21:13
PROVIDERS: Internal Medicine
DX: J32.9 Chronic sinusitis, unspecified (principal); R42 Dizziness and giddiness; Z90.49 Acquired absence of other specified parts of digestive tract; Z20.822 Contact with and (suspected) exposure to COVID-19

== ENCOUNTER 2025-03-07 21:16 | Emergency (ER) | payer BC ==
[~2025-03-07] VITALS: Ht 149.8 cm; Wt 59.0 kg
[~2025-03-07 21:16] MED LIST changes: +GOOD NEIGHBOR M25 M1 PO
[2025-03-07] MEDS ORDERED: FLONASE ALLERG9.9 ML NAS (23:17)
== END 2025-03-07 23:31 | disposition home or self-care (01) ==
LOC: ED 21:16
DX: J06.9 Acute upper respiratory infection, unspecified (principal); K21.9 Gastro-esophageal reflux disease without esophagitis; Z90.49 Acquired absence of other specified parts of digestive tract; Z88.8 Allergy status to other drugs, medicaments and biological substances; Z20.822 Contact with and (suspected) exposure to COVID-19